=== PATIENT | male | born 1930 | race Caucasian/White ===

== ENCOUNTER 2016-09-25 07:40 | Day surgery (SDC) | payer MEDICARE, OTHER ==
--- NOTE | 2016-09-25 06:55 | PCM.HP ---
H&P History of Present Illness - General Date of Service: 09/25/16 Admit Problem/Dx: tubular adenoma of duodenum Source of Information: Patient - History of Present Illness Initial Comments - Free Text/Narative: The patient is a 86-year-old male known to the clinic. His PCP is Dr. Eva Downs. He was last evaluated in the clinic on 08/22/16. He denies any changes to his health history. He has been holding his Coumadin for 5 days. PT/INR drawn today. The patient underwent a diagnostic EGD with diagnostic colonoscopy on 2015 this was completed with Dr. Brenda Arizmendi for suspected upper GI bleed, chronic anticoagulation, anemia, melena. The EGD and colonoscopy revealed gastritis, pyloric stenosis, moderate diverticulosis, colon polyps, and colonic venous lakes. The patient did have an ascending colon polyp, sigmoid colon polyp and rectal polyp. Dilation was not required of the pyloric stenosis. The patient did have a duodenal polyp. This was biopsied. No obvious ulcers or evidence of recent bleeding were noted. The patient was instructed to continue his Protonix and Carafate. Pathology revealed tubular adenomatous duodenal polyp , colon polyps (tubular adenoma x 1). Dr. Arizmendi did recommend a short interval EGD to remove the entire duodenal polyp. The patient denies any constipation/ diarrhea/ hematochezia/ melena/blood on tissue paper/hemorrhoids. Has 1-2 soft, brown, formed, BMs daily. No abdominal pain. No recurrence of GI bleeding. He is on Coumadin therapy for atrial fibrillation. No history of reflux, heartburn, nausea, vomiting, or dysphagia. - Related Data Allergies/Adverse Reactions: Allergies Allergy/AdvReac Type Severity Reaction Status Date / Time No Known Allergies Allergy Verified 09/24/16 16:44 Home Medications: Home Meds Metoprolol Tartrate 25 mg PO BID 01/05/16 [History] Nabumetone [Relafen] 750 mg PO BID 01/05/16 [History] Pantoprazole Sodium [Protonix] 40 mg PO DAILY #30 tablet. 01/08/16 [Rx] Acetaminophen [Tylenol] 650 mg PO Q6H PRN 02/01/16 [History] Calcium Carbonate/Vitamin D3 [Calcium 600 + Vit D Softgel] 1 tab PO DAILY [History] Cyanocobalamin (Vitamin B-12) [Vitamin B-12] 1,000 mcg PO DAILY 02/01/16 [ History] Ubidecarenone [Co Q-10] 100 mg PO DAILY 02/01/16 [History] Warfarin Sodium [Jantoven] 3 mg PO DAILY 02/01/16 [History] Diltiazem HCl [Dilt-Xr] 180 mg PO DAILY 09/24/16 [History] Ferrous Sulfate 325 mg PO BIDMEALS 09/24/16 [History] Potassium Chloride [Potassium Chloride] 10 meq PO DAILY 09/24/16 [History] Simvastatin [Simvastatin] 10 mg PO DAILY 09/24/16 [History] Past Medical History HEENT History: Reports: Hard of Hearing, Impaired Vision, Other (See Below) Other HEENT History: hearing aid, dentures, glasses Cardiovascular History: Reports: Afib, High Cholesterol, Hypertension Other Cardiovascular History: Mitral and aortic heart valve diseases, aortic insufficiency, EF of 50-55% Respiratory History: Reports: COPD, Sleep Apnea Gastrointestinal History: Reports: Colon Polyp, Fecal Incontinence, Gastritis, GI Bleed, Other (See Below) Other Gastrointestinal History: dysphagia, GI bleed, adenoma of duodenum Genitourinary History: Reports: BPH, Other (See Below) Other Genitourinary History: nocturia REGULATORY AFFAIRS ANALYST History: Reports: None Musculoskeletal History: Reports: Arthritis, Osteoarthritis Other Musculoskeletal History: Chronic spine pain, degenerative joing disease Neurological History: Reports: Other (See Below) Other Neuro History: lightheadedness, dizziness Psychiatric History: Reports: Depression Endocrine/Metabolic History: Reports: None Hematologic History: Reports: None Immunologic History: Reports: None Oncologic (Cancer) History: Reports: None Dermatologic History: Reports: None - Past Surgical History HEENT Surgical History: Reports: Tonsillectomy Cardiovascular Surgical History: Reports: Other (See Below) Other Cardiovascular Surgeries/Procedures: cardiac cath GI Surgical History: Reports: Colonoscopy, EGD Male Surgical History: Reports: Vasectomy Musculoskeletal Surgical History: Reports: Carpal Tunnel, Hip Replacement, Knee Replacement, Other (See Below) Other Musculoskeletal Surgeries/Procedures:: Right ulnar nerve surgery, carpal tunnel release Social & Family History - Family History Family Medical History: Noncontributory - Tobacco Use Smoking Status *Q: Former Smoker Used Tobacco, but Quit: Yes Month Tobacco Last Used: Quit in 1962 Second Hand Smoke Exposure: No - Caffeine Use Caffeine Use: Reports: Coffee, Tea Caffeine Use Comment: one cup of coffee in the morning and a half gallon of iced tea a day - Recreational Drug Use Recreational Drug Use: No - Living Situation & Occupation Living situation: Reports: Occupation: Retired H&P Review of Systems - Review of Systems: Review Of Systems: See Below Free Text/Narrative: Denies any exertional chest pain. Has exertional shortness of breath. Did report at last cardiology visit, no change since that visit, no worse. History of any easy bleeding or bruising, is on coumadin for atrial fibrillation. No personal clotting or bleeding disorders. Mother had multiple mini strokes. No history of anesthetic complications. No history of familial anesthetic complications. Denies presence/history of chest pain, palpitations. Has lower extremity edema , PCP aware per patient. Reports this resolved after elevation or sleeping. He does occasionally wear compression stockings. NO: dyspnea at rest, orthopnea, claudication, wheezing. Has obstructive sleep apnea. NO: chronic cough, upper respiratory symptoms in the last two weeks. History of blood thinner use, on Coumadin for atrial fibrillation. History of anemia. The patient left knee and right hip joint replacement. No history of seizure or stroke. No hx of valve replacement/repair. No history of fever, chills, or night sweats. Prior pulmonology evaluation many years ago for his shortness of breath. Prior cardiology evaluation. EKG 2015: EKG Severity - ABNORMAL ECG - EKG Impression Atrial fibrillation Nonspecific intraventricular conduction delay Low voltage, extremity leads Echo 2016: Conclusion: 1. Normal LV size and systolic function without hypertrophy. Left ventricular ejection fraction is 50 to 55%. 2. Mildly enlarged right ventricle with normal systolic function 3. Severe biatrial dilatation. 4. Moderate mitral valve regurgitation. 5. Mild aortic sclerosis with mild to moderate aortic regurgitation. 6. Moderate tricuspid regurgitation. 7. Mildly elevated pulmonary artery systolic pressure, estimated at 44.4 mmHg. Saw Edna Anderson PA-C in April 2016. He has Chronic atrial fibrillation, anticoagulated with Coumadin, rate controlled with Toprol and diltiazem. He has Hypertension. Blood pressure controlled is controlled on diltiazem and metoprolol. He has Hyperlipidemia. His LDL was not at goal and Simvastatin was increased 10 mg daily. He has Nonrheumatic valvular heart disease. Repeat echocardiogram advised with his followup appointment in 6 months. EKG in ED 2016:Abnormal EKG, atrial fibrillation, PVCs, "decreased voltage particularly noted in limb leads, diffuse early repolarization pattern Q waves in lead 3. Q wave in lead aVF considered insignificant, as it is less than 25% of QRS complex. Cannot rule out old inferior wall KS for certain, no acute ischemic changes evident," per Dr. Mina's note. Cardiolite stress test in 2013 found no definite reversible ischemia. Cardiac Cath 2008: SUMMARY 1. Normal coronary arteries. 2. Normal right heart pressures. 3. One-plus aortic insufficiency. 4. Normal left ventricular systolic function, ejection fraction 55%-60%. All other systems reviewed and were negative except as per history of present illness. General: Reports: No Symptoms. Denies: Fever, Chills HEENT: Reports: No Symptoms Pulmonary: Reports: No Symptoms. Denies: Shortness of Breath Cardiovascular: Reports: No Symptoms. Denies: Chest Pain, Palpitations, Lightheadedness, Syncope, Blood Pressure Problem Gastrointestinal: Reports: No Symptoms. Denies: Abdominal Pain Genitourinary: Reports: No Symptoms Musculoskeletal: Reports: No Symptoms Skin: Reports: No Symptoms Psychiatric: Reports: No Symptoms Neurological: Reports: No Symptoms Hematologic/Lymphatic: Reports: No Symptoms Immunologic: Reports: No Symptoms Exam - Exam Exam: See Below - Vital Signs Weight: 106.458 kg - Exam General: Alert, Oriented HEENT: Conjunctiva Clear. No: Scleral Icterus Neck: Supple Lungs: Clear to Auscultation, Normal Respiratory Effort Cardiovascular: Regular Rate, Normal S1, Normal S2, Irregular Rhythm, Other ( occasional extra systole) Abdomen: Soft. No: Tenderness Back Exam: Normal Inspection Extremities: Normal Inspection, Normal Pulses, Edema (+1 BLE). No: Clubbing Skin: Warm, Dry, Intact Neuro Extensive - Mental Status: Alert, Oriented x3, Normal Mood/Affect, Normal Cognition, Memory Intact Psychiatric: Alert, Normal Affect, Normal Mood *Q Meaningful Use (ADM) - VTE *Q VTE Criteria *Q: - Stroke *Q Stroke Criteria *Q: - AMI *Q AMI Criteria *Q: - Problem List (1) Duodenal adenoma SNOMED Code(s): 726049884 ICD Code: D13.2 - BENIGN NEOPLASM OF DUODENUM Status: Acute Current Visit : Yes Problem List Initiated/Reviewed/Updated: Yes Orders Last 24hrs: Active Orders 24 hr Category Date Time Status Peripheral IV Care [RC] . DIRECTED Care 09/25/16 07:00 Active Verify Patient Consent Obtain [RC] ASDIRECTED Care 09/25/16 07:00 Active Lactated Ringers [Ringers, Lactated] 1,000 ml Med 09/25/16 07:00 Active IV ASDIRECTED Lidocaine 1%/Sod Bicarbonate [Buffered Lidocaine 1% in Med 09/25/16 07:00 Active NS 8.4%] 0.25 ml .XX ONETIME PRN Sodium Chloride 0.9% [Saline Flush] Med 09/25/16 07:00 Active 10 ml FLUSH ASDIRECTED PRN Medication Administration Instruction [OM.PC] Routine Oth 09/25/16 07:00 Ordered Peripheral IV Insertion Adult [OM.PC] Routine Oth 09/25/16 07:00 Ordered Medication Orders Lactated Ringer's (Ringers, Lactated) 1,000 mls @ 125 mls/hr IV ASDIRECTED MONIKA Stop: 09/25/16 23:00 Lidocaine/Sodium Bicarbonate (Buffered Lidocaine 1% In Ns 8.4%) 0.25 ml .XX ONETIME PRN PRN Reason: Prior to IV Start Stop: 09/25/16 18:00 Sodium Chloride (Saline Flush) 10 ml FLUSH ASDIRECTED PRN PRN Reason: Keep Vein Open Stop: 09/25/16 18:00 Assessment/Plan Comment:: 86yr male with hx of biopsied tubular adenoma of duodenum, need for therapeutic EGD Patient can perform 4 METS of physical activity without chest pain. Has exertional shortness of breath. PLAN: We discussed performing a therapeutic EGD. We discussed the risks and benefits, including pain, bleeding, damage to surrounding structures, small bowel perforation, need for additional procedures. This procedure will be done at [facility], due to atrial fibrillation, chronic anticoagulation, co-morbidities. I personally reviewed the patient's previous medical records and laboratory studies. Patient verbalized understanding and agreed with care plan. Patient was evaluated with Dr. Arizmendi, plan formulated by Dr. Ugo Shelton, BOTANICAL TECHNICAL OFFICER-C scribing for Dr. Brenda Arizmendi General Surgery Department [facility]
[~2016-09-25 07:40] MED LIST: Lactated Ringers 1,000 ML IV SCH; Lidocaine 1%/Sod Bicarbonate in NS 8.4% 1 ML Syringe PRN; Sodium Chloride 0.9% 10 ML Syringe FLUSH PRN
--- NOTE | 2016-09-25 08:28 | PCM.PREANE ---
Preanesthetic Assessment - Procedure Proposed Procedure: Therapeutic EGD - Anesthesia/Transfusion/Family Hx Anesthesia History: Prior Anesthesia Without Reaction Family History of Anesthesia Reaction: No Transfusion History: Prior Transfusion Without Reaction Intubation History: Unknown - Review of Systems General: No Symptoms Pulmonary: Cough (Everyday cough), Other (Current smokeless tobacco user, STACIE, brought CPAP) Cardiovascular: Lightheadedness, Other (HTN, Afib, non-rhumatic valvular heart disease, mitral and aortic insufficiency, nonspecific conduction delay, hypercholesteremia) Gastrointestinal: Difficulty swallowing (Dysphagia), Other (Past GI bleed with prior blood transfusion in fall 2015, gastritis, adenoma of duodenem) Neurological: Dizziness, Headache, Numbness, Paresthesia, Tingling, Other ( Degenerative joint disease, arthritis, spine pain) Other: Reports: Easy Bleeding (On coumadin), Easy Bruising, Depression - Physical Assessment NPO Status Date: 09/24/16 NPO Status Time: 23:30 Pulse: 73 O2 Sat by Pulse Oximetry: 96 Respiratory Rate: 16 Blood Pressure: 138/81 Temperature: 35.6 C Vital Signs: Last Vital Signs Temp 35.6 C 09/25/16 07:50 Pulse 73 09/25/16 07:50 Resp 16 09/25/16 07:50 BP 138/81 09/25/16 07:50 Pulse Ox 96 09/25/16 07:50 Height: 1.88 m Weight: 113.852 kg ASA Class: 3 Mental Status: Alert & Oriented x3 Airway Class: Mallampati = 1 Dentition: Reports: Dentures (Both upper and lower) Thyro-Mental Finger Breadths: 3 Mouth Opening Finger Breadths: 3 ROM/Head Extension: Limited/Partial Lungs: Clear to auscultation, Normal respiratory effort Cardiovascular: Irregular Rhythm, Murmurs - Allergies Allergies/Adverse Reactions: Allergies Allergy/AdvReac Type Severity Reaction Status Date / Time No Known Allergies Allergy Verified 09/24/16 16:44 - Blood Blood Available: No Product(s) Available: None - Acknowledgements Anesthesia Type Planned: MAC Pt an Appropriate Candidate for the Planned Anesthesia: Yes Alternatives and Risks of Anesthesia Discussed w Pt/Guardian: Yes Pt/Guardian Understands and Agrees with Anesthesia Plan: Yes PreAnesthesia Questionnaire HEENT History: Reports: Hard of Hearing, Impaired Vision, Other (See Below) Other HEENT History: hearing aid, dentures, glasses Cardiovascular History: Reports: Afib, High Cholesterol, Hypertension Other Cardiovascular History: Mitral and aortic heart valve diseases, aortic insufficiency, EF of 50-55% Respiratory History: Reports: COPD, Sleep Apnea Gastrointestinal History: Reports: Colon Polyp, Fecal Incontinence, Gastritis, GI Bleed, Other (See Below) Other Gastrointestinal History: dysphagia, GI bleed, adenoma of duodenum Genitourinary History: Reports: BPH, Other (See Below) Other Genitourinary History: nocturia SALES CONSULTANT History: Reports: None Musculoskeletal History: Reports: Arthritis, Osteoarthritis Other Musculoskeletal History: Chronic spine pain, degenerative joing disease Neurological History: Reports: Other (See Below) Other Neuro History: lightheadedness, dizziness Psychiatric History: Reports: Depression Endocrine/Metabolic History: Reports: None Hematologic History: Reports: None Immunologic History: Reports: None Oncologic (Cancer) History: Reports: None Dermatologic History: Reports: None - Past Surgical History HEENT Surgical History: Reports: Tonsillectomy Cardiovascular Surgical History: Reports: Other (See Below) Other Cardiovascular Surgeries/Procedures: cardiac cath GI Surgical History: Reports: Colonoscopy, EGD Male Surgical History: Reports: Vasectomy Musculoskeletal Surgical History: Reports: Carpal Tunnel, Hip Replacement, Knee Replacement, Other (See Below) Other Musculoskeletal Surgeries/Procedures:: Right ulnar nerve surgery, carpal tunnel release - SUBSTANCE USE Smoking Status *Q: Former Smoker Tobacco Use Within Last Twelve Months: Smokeless Tobacco (Current) Second Hand Smoke Exposure: No Days Per Week of Alcohol Use: 0 Number of Drinks Per Day: 0 Total Drinks Per Week: 0 Recreational Drug Use History: No - HOME MEDS Home Medications: Home Meds Metoprolol Tartrate 25 mg PO BID 01/05/16 [History] Nabumetone [Relafen] 750 mg PO BID 01/05/16 [History] Pantoprazole Sodium [Protonix] 40 mg PO DAILY #30 tablet.dr 01/08/16 [Rx] Acetaminophen [Tylenol] 650 mg PO Q6H PRN 02/01/16 [History] Calcium Carbonate/Vitamin D3 [Calcium 600 + Vit D Softgel] 1 tab PO DAILY [History] Cyanocobalamin (Vitamin B-12) [Vitamin B-12] 1,000 mcg PO DAILY 02/01/16 [ History] Ubidecarenone [Co Q-10] 100 mg PO DAILY 10/13/16 [History] Warfarin Sodium [Jantoven] 3 mg PO DAILY 02/01/16 [History] Diltiazem HCl [Dilt-Xr] 180 mg PO DAILY 09/24/16 [History] Ferrous Sulfate 325 mg PO BIDMEALS 09/24/16 [History] Potassium Chloride [Potassium Chloride] 10 meq PO DAILY 09/24/16 [History] Simvastatin [Simvastatin] 10 mg PO DAILY 09/24/16 [History] - CURRENT (IN HOUSE) MEDS Current Meds: Current Medications Lactated Ringer's (Ringers, Lactated) 1,000 mls @ 125 mls/hr IV ASDIRECTED MONIKA Stop: 09/25/16 23:00 Last Admin: 09/25/16 08:10 Dose: 125 mls/hr Lidocaine/Sodium Bicarbonate (Buffered Lidocaine 1% In Ns 8.4%) 0.25 ml .XX ONETIME PRN PRN Reason: Prior to IV Start Stop: 09/25/16 18:00 Sodium Chloride (Saline Flush) 10 ml FLUSH ASDIRECTED PRN PRN Reason: Keep Vein Open Stop: 09/25/16 18:00
[2016-09-25] MEDS ORDERED: Propofol 200 MG/20 ML SDV ONE ×2 (08:46→08:47)
[2016-09-25] MEDS ORDERED: Lidocaine 1% 4 ML ONE (08:50)
--- NOTE | 2016-09-25 08:54 | PCM.OPNOTE ---
- General Post-Op/Procedure Note Date of Surgery/Procedure: 09/25/16 Operative Procedure(s): Therapeutic EGD with cold forceps biopsy Pre Op Diagnosis: Tubular adenoma the duodenum Post-Op Diagnosis: Gastric ulcers, duodenal (D3) adenoma Anesthesia Technique: MAC Primary Surgeon: Brenda Arizmendi Anesthesia Provider: Allison Mauro Pathology: 1. Duodenal adenoma 2. Antral biopsies EBL in mLs: 1 Complications: None Condition: Good Free Text/Narrative:: FLUIDS: 200 mL crystalloid. INDICATION FOR PROCEDURE: The patient is a 86-year-old man who is referred to me by Dr. Eva Downs for evaluation of adenomatous polyp of the duodenum. EGD had been discussed with the patient and risks of the associated procedure. The patient found these risks acceptable and agreed to proceed. DESCRIPTION OF PROCEDURE: The patient was taken to the operating room and placed in the left lateral decubitus position. After induction of adequate sedation, a bite block was placed. A standard Olympus gastroscope was inserted into the oropharynx and guided down the esophagus without difficulty. The gastroesophageal junction was appreciated at 42 cm from the teeth. There was no evidence of stricture or esophageal ulcerations. The scope was advanced into the stomach, and there were antral ulcers (2) and gastritis with areas of punctate hemorrhage. The scope was passed into the proximal jejunum and the duodenum which showed a small residual polyp at D3 which was completely excised with cold forceps. There were no petechiae or ulcerations. The proximal jejunum was grossly normal in appearance. The scope was withdrawn into the antrum, and additional cold forceps biopsies were obtained. The remainder of the gastric body was examined, and there were no additional abnormalities. The scope was retroflexed, and there was evidence of hiatal hernia (3 cm). The scope was straightened and withdrawn to the GE junction. Additional cold forceps biopsies were obtained of the distal esophagus. The scope was withdrawn through the remainder of the esophagus and no further abnormalities were noted. The posterior oropharynx was grossly normal in appearance. The scope was then fully withdrawn. The patient was awakened from sedation and transferred to the recovery room in stable condition having tolerated the procedure well. POSTOPERATIVE PLAN: I discussed with the patient's family my intraoperative findings and postoperative recommendations. The patient will follow up in approximately 7-10 days to discuss their pathology and how their symptoms are progressing. The patient is to continue Protonix, restart H2 oleg and Carafate. I have asked the patient to follow a GERD\gastritis diet. The patient is to call with any worsening of symptoms or questions prior to appointment.
--- NOTE | 2016-09-25 09:29 | PCM48HPAN ---
Post Anesthesia Note - EVALUATION WITHIN 48HRS OF ANESTHETIC Vital Signs in Normal Range: Yes Patient Participated in Evaluation: Yes Respiratory Function Stable: Yes (will put on home CPAP mask if needed ) Airway Patent: Yes Cardiovascular Function Stable: Yes Hydration Status Stable: Yes Pain Control Satisfactory: Yes Nausea and Vomiting Control Satisfactory: Yes Mental Status Recovered: Yes
[2016-09-25 10:57] VITALS: BP 129/86
== END 2016-09-25 10:10 | disposition home or self-care (01) ==
LOC: JD.SDS 07:40
PROVIDERS: ATTEND Surgery
DX: D13.2 Benign neoplasm of duodenum (principal); K44.9 Diaphragmatic hernia without obstruction or gangrene; Z79.899 Other long term (current) drug therapy; I10 Essential (primary) hypertension; E78.00 Pure hypercholesterolemia, unspecified; J44.9 Chronic obstructive pulmonary disease, unspecified; G47.30 Sleep apnea, unspecified; N40.0 Benign prostatic hyperplasia without lower urinary tract symptoms; F32.9 Major depressive disorder, single episode, unspecified; Z79.01 Long term (current) use of anticoagulants; Z98.52 Vasectomy status; Z96.649 Presence of unspecified artificial hip joint; Z96.659 Presence of unspecified artificial knee joint; Z87.891 Personal history of nicotine dependence
CPT/HCPCS: 36415; 43239; 85610; 88305; J7120; J2704

== ENCOUNTER 2017-11-06 09:50 | Day surgery (SDC) | payer MEDICARE, OTHER ==
[~2017-11-06 09:50] MED LIST changes: +Lidocaine 1% 4 ML ONE; +Lidocaine 1%/Sod Bicarbonate in NS 8.4% 1 ML Syringe IDERM PRN; -Lidocaine 1%/Sod Bicarbonate in NS 8.4% 1 ML Syringe PRN; +Propofol 200 MG/20 ML SDV ONE; +fentaNYL 100 MCG/2 ML SDV ONE
--- NOTE | 2017-11-06 10:36 | PCM.PREANE ---
Preanesthetic Assessment - Anesthesia/Transfusion/Family Hx Anesthesia History: Prior Anesthesia Without Reaction Family History of Anesthesia Reaction: No Transfusion History: Prior Transfusion Without Reaction Intubation History: Unknown - Review of Systems General: No Symptoms Pulmonary: No Symptoms Cardiovascular: Dyspnea on Exertion Gastrointestinal: No Symptoms Neurological: No Symptoms Other: Reports: None - Physical Assessment NPO Status Date: 11/05/17 NPO Status Time: 00:00 Pulse: 86 O2 Sat by Pulse Oximetry: 93 Respiratory Rate: 20 Blood Pressure: 124/82 Temperature: 37.0 C Height: 1.88 m Weight: 113.67 kg ASA Class: 3 Mental Status: Alert & Oriented x3 Thyro-Mental Finger Breadths: 3 Mouth Opening Finger Breadths: 3 ROM/Head Extension: Full Lungs: Clear to Auscultation, Normal Respiratory Effort Cardiovascular: Irregular Rhythm - Imaging/EKG Impressions: FKG A-fib - Allergies Allergies/Adverse Reactions: Allergies Allergy/AdvReac Type Severity Reaction Status Date / Time No Known Allergies Allergy Verified 11/06/17 11:42 - Blood Blood Available: No Product(s) Available: None - Anesthesia Plan Pre-Op Medication Ordered: Beta Sidra Beta Sidra: Metoprolol Med Last Dose Date: 11/06/17 Med Last Dose Time: 08:30 - Acknowledgements Anesthesia Type Planned: MAC Pt an Appropriate Candidate for the Planned Anesthesia: Yes Alternatives and Risks of Anesthesia Discussed w Pt/Guardian: Yes Pt/Guardian Understands and Agrees with Anesthesia Plan: Yes PreAnesthesia Questionnaire HEENT History: Reports: Hard of Hearing, Impaired Vision, Other (See Below) Other HEENT History: hearing aid, dentures, glasses Cardiovascular History: Reports: Afib, High Cholesterol, Hypertension Other Cardiovascular History: Mitral and aortic heart valve diseases, aortic insufficiency, EF of 50-55% Respiratory History: Reports: COPD, Sleep Apnea, SOB Gastrointestinal History: Reports: Colon Polyp, Fecal Incontinence, Gastritis, GI Bleed, Other (See Below) Other Gastrointestinal History: dysphagia, GI bleed, adenoma of duodenum Genitourinary History: Reports: BPH, Other (See Below) Other Genitourinary History: nocturia [employer] History: Reports: None Musculoskeletal History: Reports: Arthritis, Osteoarthritis Other Musculoskeletal History: Chronic spine pain, degenerative joing disease Neurological History: Reports: Other (See Below) Other Neuro History: lightheadedness, dizziness Psychiatric History: Reports: Depression Endocrine/Metabolic History: Reports: None Hematologic History: Reports: None Immunologic History: Reports: None Oncologic (Cancer) History: Reports: None Dermatologic History: Reports: None - Past Surgical History Head Surgeries/Procedures: Reports: None HEENT Surgical History: Reports: Tonsillectomy Cardiovascular Surgical History: Reports: Other (See Below) Other Cardiovascular Surgeries/Procedures: cardiac cath Respiratory Surgical History: Reports: None GI Surgical History: Reports: Colonoscopy, EGD Male Surgical History: Reports: Vasectomy Endocrine Surgical History: Reports: None Neurological Surgical History: Reports: None Musculoskeletal Surgical History: Reports: Carpal Tunnel, Hip Replacement, Knee Replacement, Other (See Below) Other Musculoskeletal Surgeries/Procedures:: Right ulnar nerve surgery, carpal tunnel release Oncologic Surgical History: Reports: None Dermatological Surgical History: Reports: None - SUBSTANCE USE Smoking Status *Q: Current Every Day Smoker Tobacco Use Within Last Twelve Months: Smokeless Tobacco, Snuff/Dip Recreational Drug Use History: No - HOME MEDS Home Medications: Home Meds Metoprolol Tartrate 25 mg PO BID 01/05/16 [History] Nabumetone [Relafen] 750 mg PO BID 01/05/16 [History] Calcium Carbonate/Vitamin D3 [Calcium 600-Vit D3 500 Softgel] 1 tab PO DAILY [History] Cyanocobalamin (Vitamin B-12) [Vitamin B-12] 1,000 mcg PO DAILY 02/01/16 [ History] Warfarin Sodium [Jantoven] 3 mg PO DAILY 02/01/16 [History] Diltiazem HCl [Dilt-Xr] 180 mg PO DAILY 09/24/16 [History] Potassium Chloride 10 meq PO DAILY 09/24/16 [History] Simvastatin 10 mg PO DAILY 09/24/16 [History] Ranitidine HCl [Zantac 75] 75 mg PO BID #60 tablet 09/25/16 [Rx] - CURRENT (IN HOUSE) MEDS Current Meds: Current Medications Lactated Ringer's (Ringers, Lactated) 1,000 mls @ 125 mls/hr IV ASDIRECTED MONIKA Stop: 11/06/17 23:00 Lidocaine/Sodium Bicarbonate (Buffered Lidocaine 1% In Ns 8.4%) 0.25 ml IDERM ONETIME PRN PRN Reason: Prior to IV Start Stop: 11/06/17 18:00 Sodium Chloride (Saline Flush) 10 ml FLUSH ASDIRECTED PRN PRN Reason: Keep Vein Open Stop: 11/06/17 18:00 Discontinued Medications Fentanyl (Sublimaze) Confirm Administered Dose 100 mcg .ROUTE .STK-MED ONE Stop: 11/06/17 09:23 Lidocaine HCl (Xylocaine-Mpf 1%) Confirm Administered Dose 4 mls @ as directed .ROUTE .STK-MED ONE Stop: 11/06/17 09:27 Propofol (Diprivan 20 Ml) Confirm Administered Dose 200 mg .ROUTE .STK-MED ONE Stop: 11/06/17 09:27
--- NOTE | 2017-11-06 12:05 | PCM.OPNOTE ---
- General Post-Op/Procedure Note Date of Surgery/Procedure: 11/06/17 Operative Procedure(s): EGD with bx Pre Op Diagnosis: hx of gastic ulcer and hx of excsions of duodenal adenoma Post-Op Diagnosis: Same Anesthesia Technique: MAC Primary Surgeon: Clif Nice EBL in mLs: 0 Complications: None Condition: Good
--- NOTE | 2017-11-06 12:09 | PCM48HPAN ---
Post Anesthesia Note - EVALUATION WITHIN 48HRS OF ANESTHETIC Vital Signs in Normal Range: Yes Patient Participated in Evaluation: Yes Respiratory Function Stable: Yes Airway Patent: Yes Cardiovascular Function Stable: Yes Hydration Status Stable: Yes Pain Control Satisfactory: Yes Nausea and Vomiting Control Satisfactory: Yes Mental Status Recovered: Yes Pulse Rate: 55 SaO2: 92 Resp Rate: 14 Temperature: 36.6 C Blood Pressure: 92/69
--- NOTE | 2017-11-07 07:10 | OR ---
DATE OF OPERATION: 11/06/2017 SURGEON: Clif Nice MD PREOPERATIVE DIAGNOSIS: History of duodenal adenoma and gastric ulcer, here for surveillance upper GI endoscopy. POSTOPERATIVE DIAGNOSIS: History of duodenal adenoma and gastric ulcer, here for surveillance upper GI endoscopy. OPERATION PERFORMED: Esophagogastroduodenoscopy with biopsy. FINDINGS: Superficial ulceration in the antrum. Second portion of the duodenum and duodenal bulb were normal. Body, cardia, and fundus of the stomach unremarkable. 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 GE junction located at 42 cm with some granulation tissue by which it was biopsied. Rest of the esophagus was unremarkable. ANESTHESIA: Done under IV sedation. DESCRIPTION OF PROCEDURE: The patient was taken to the endoscopy room, placed in a supine position, connected to monitoring equipment, given IV sedation, placed in left lateral position. Bite block was inserted and video Olympus gastroscope placed in the posterior oropharynx under direct vision, threaded past the cricopharyngeus, down the esophagus into the stomach. Stomach was insufflated, and the scope passed through the pylorus to the second portion of the duodenum. There was some distortion of the antrum. Second portion of the duodenum and duodenal bulb were unremarkable. The antrum showed some inflammation and possible ulcer and this was biopsied. It was early if anything. Body, cardia, fundus, stomach, and J maneuver was performed, incompetent hiatus was noted. Did not see any pathology. GE junction was located at 42 cm and showed some granulation tissue and this was biopsied. Rest of the esophagus was viewed, scope was withdrawn, unremarkable. The patient tolerated the procedure, sent to recovery room in a stable condition, and will be started on anticoagulation and biopsies sent to pathology in a labeled container. ESTIMATED BLOOD LOSS: MMODAL /[id number]
[2017-11-12 08:00] VITALS: BP 124/82
== END 2017-11-06 14:00 | disposition home or self-care (01) ==
LOC: JD.SDS 09:50
PROVIDERS: ATTEND Surgery
DX: K29.60 Other gastritis without bleeding (principal); K44.9 Diaphragmatic hernia without obstruction or gangrene; G47.30 Sleep apnea, unspecified; I10 Essential (primary) hypertension; I48.2 Chronic atrial fibrillation; J44.9 Chronic obstructive pulmonary disease, unspecified; M19.90 Unspecified osteoarthritis, unspecified site; E78.00 Pure hypercholesterolemia, unspecified; F17.290 Nicotine dependence, other tobacco product, uncomplicated; Z79.01 Long term (current) use of anticoagulants; Z79.899 Other long term (current) drug therapy; Z87.19 Personal history of other diseases of the digestive system
CPT/HCPCS: 36415; 43239; 85610; J2704; J3010; J7120; 00731; J2001

== ENCOUNTER 2019-01-24 17:07 | Inpatient (IN) | payer MEDICARE, OTHER ==
[2019-01-24] MEDS ORDERED: Acetaminophen 325 MG Tab PO ONE (17:54)
[2019-01-24] MEDS ORDERED: Ondansetron 4 MG/2 ML SDV IVPUSH ONE (17:55)
[2019-01-24] MEDS ORDERED: Dextrose 5%-0.9% NaCl 1,000 ML IV SCH (18:00)
[2019-01-24] MEDS ORDERED: Levofloxacin/Dextrose 5%-Water 750 MG in Premix Bag 1 BAG IV ONE (18:01)
--- NOTE | 2019-01-24 18:02 | EDM.PDOC ---
ED HPI GENERAL MEDICAL PROBLEM - General Chief Complaint: General Stated Complaint: FLU SX Time Seen by Provider: 01/24/19 17:29 Source of Information: Reports: Patient, Family (son) History Limitations: Reports: No Limitations - History of Present Illness INITIAL COMMENTS - FREE TEXT/NARRATIVE: 88-year-old male presents to the ED in the Imminent of his son. He lives alone and does very well. He became ill about 48 hours ago with fever and some chills and just feeling weak. He does have a minimal cough. Denies any diarrhea. He feels he does not empty his bladder completely at times during the day. Known to have BPH. He presents quite hypoxic. 88% on room air. Right oxygen at 4 L/m to maintain O2 sats 94%. He doesn't use oxygen at home. He is indeed very febrile. Clinically he is 102. He hasn't eaten hardly at all today. Feels weak and dizzy with standing. Onset: Sudden Onset Date: 01/22/19 (Hasn't felt well for the last 48 hours.) Duration: Day(s):, Getting Worse (2 days) Location: Reports: Generalized (Fever chills generalized weakness and shortness of breath.) Quality: Reports: Other (Lightheaded and dizzy. Mildly nauseated. No appetite.) Severity: Moderate Improves with: Reports: None Worsens with: Reports: None Context: Reports: Other (Spontaneous occurrence.). Denies: Activity, Exercise, Lifting, Sick Contact, Trauma Associated Symptoms: Reports: Cough, cough w sputum, Loss of Appetite, Malaise, Shortness of Breath, Weakness, Other (Generalized weakness and dizziness with standing). Denies: Confusion, Chest Pain, Diaphoresis (Bring a small quantity is of sputum.), Fever/Chills, Headaches, Nausea/Vomiting, Rash, Seizure, Syncope Treatments REFERENCE LIBRARY ASSISTANT: Reports: Other (see below) (None.) - Related Data Allergies Allergy/AdvReac Type Severity Reaction Status Date / Time No Known Allergies Allergy Verified 11/06/17 11:42 Home Meds: Home Meds Metoprolol Tartrate 25 mg PO BID 01/05/16 [History] Cyanocobalamin (Vitamin B-12) [Vitamin B-12] 1,000 mcg PO DAILY 02/01/16 [ History] Warfarin Sodium [Jantoven] 3 mg PO DAILY 02/01/16 [History] Diltiazem HCl [Dilt-Xr] 180 mg PO DAILY 09/24/16 [History] Simvastatin 10 mg PO DAILY 09/24/16 [History] Furosemide [Lasix] 20 mg PO DAILY 01/24/19 [History] Omeprazole Magnesium [Prilosec] 20 mg PO BEDTIME 01/24/19 [History] Potassium Chloride 10 meq PO DAILY 01/25/19 [History] Past Medical History HEENT History: Reports: Hard of Hearing, Impaired Vision, Other (See Below) Other HEENT History: hearing aid, dentures, glasses Cardiovascular History: Reports: Afib (Currently on Coumadin diltiazem and metoprolol for rate control.), High Cholesterol, Hypertension Other Cardiovascular History: Mitral and aortic heart valve diseases, aortic insufficiency, EF of 50-55% Respiratory History: Reports: COPD, Sleep Apnea, SOB Gastrointestinal History: Reports: Colon Polyp, Fecal Incontinence, Gastritis, GERD, GI Bleed, Other (See Below) Other Gastrointestinal History: dysphagia, GI bleed, adenoma of duodenum Genitourinary History: Reports: BPH, Other (See Below) Other Genitourinary History: nocturia INDUSTRIAL CUSTODIAN History: Reports: None Musculoskeletal History: Reports: Arthritis, Osteoarthritis Other Musculoskeletal History: Chronic spine pain, degenerative joing disease Neurological History: Reports: Other (See Below) Other Neuro History: lightheadedness, dizziness Psychiatric History: Reports: Depression Endocrine/Metabolic History: Reports: None Hematologic History: Reports: None Immunologic History: Reports: None Oncologic (Cancer) History: Reports: None Dermatologic History: Reports: None - Past Surgical History Head Surgeries/Procedures: Reports: None HEENT Surgical History: Reports: Tonsillectomy Cardiovascular Surgical History: Reports: Other (See Below) Other Cardiovascular Surgeries/Procedures: cardiac cath Respiratory Surgical History: Reports: None GI Surgical History: Reports: Colonoscopy, EGD Male Surgical History: Reports: Vasectomy Endocrine Surgical History: Reports: None Neurological Surgical History: Reports: None Musculoskeletal Surgical History: Reports: Carpal Tunnel, Hip Replacement, Knee Replacement, Other (See Below) Other Musculoskeletal Surgeries/Procedures:: Right ulnar nerve surgery, carpal tunnel release Oncologic Surgical History: Reports: None Dermatological Surgical History: Reports: None Social & Family History - Family History Family Medical History: Noncontributory - Tobacco Use Smoking Status *Q: Current Every Day Smoker Years of Tobacco use: 70 Packs/Tins Daily: 2 - Caffeine Use Caffeine Use: Reports: Coffee, Soda, Tea Caffeine Use Comment: one cup of coffee in the morning and a half gallon of iced tea a day - Recreational Drug Use Recreational Drug Use: No - Living Situation & Occupation Living situation: Reports: , Alone Occupation: Retired ED ROS GENERAL - Review of Systems Review Of Systems: See Below Constitutional: Reports: Fever, Chills, Malaise, Weakness, Fatigue, Decreased Appetite (Has a need to hardly at all today.) HEENT: Reports: Glasses Respiratory: Reports: Shortness of Breath (Glasses sometimes for reading), Cough , Sputum. Denies: Wheezing, Pleuritic Chest Pain, Hemoptysis Cardiovascular: Reports: Blood Pressure Problem, Dyspnea on Exertion, Edema, Palpitations (Hours has some swelling in his lower extremities.). Denies: Chest Pain, Claudication (Medication for Blood Pressure and Heart Rate Control Because He Is in Chronic Atrial Fib.), Lightheadedness, Orthopnea Endocrine: Reports: Fatigue ( He is in chronic atrial fib and sometimes is aware of palpitations.) GI/Abdominal: Reports: Constipation, Decreased Appetite : Reports: Frequency, Incontinence (Him dribbling sometimes. No incomplete emptying particular during the daytime.), Other (Nocturia 2 or 3 times per night.). Denies: Dysuria Musculoskeletal: Reports: Back Pain, Joint Pain (Knees low back and neck shoulders at times.) Skin: Reports: Bruising Neurological: Reports: No Symptoms (Bruises easily Aziz on Coumadin for his atrial fib.) Psychiatric: Reports: No Symptoms Hematologic/Lymphatic: Reports: No Symptoms Immunologic: Reports: No Symptoms ED EXAM, GENERAL - Physical Exam Exam: See Below Exam Limited By: No Limitations General Appearance: Alert, WD/WN, Mild Distress, Other (He is febrile and not feeling real well but answers all questions appropriately. Vital signs show temperature 38.2 pulse 84 and sinus respiratory distress I thought it was higher than this. BP 1 5668 sats were 86% on room air. 94% on 4 L by nasal cannula.) Eye Exam: Bilateral Eye: Normal Inspection Ears: Normal TMs, Hearing Loss, Other (He wears a hearing aid in both ears.) Throat/Mouth: Normal Oropharynx (Tonsils are absent), Other (Tongue is mildly dry and coated.) Head: Atraumatic, Normocephalic. No: Facial Swelling, Facial Tenderness Neck: Normal Inspection, Limited Range of Motion, Tender Lateral (Crepitus with movement of his neck tender laterally both sides suggesting osteoarthritic change.). No: Lymphadenopathy (L), Lymphadenopathy (R) Respiratory/Chest: No Accessory Muscle Use, Chest Non-Tender, Respiratory Distress (Tachypneic 21-22/m on my assessment.), Decreased Breath Sounds ( Breast sounds are diminished to the lower 30% of lung chaudhary bilaterally.), Rales (9 crackles or rales at both bases. Questionable pulmonary fibrosis.). No : Lungs Clear, Normal Breath Sounds, Rhonchi, Wheezing Cardiovascular: Systolic Murmur (There is an early diastolic murmur as well.), Irregularly Irregular (Atrial fibrillation with rate 80-145 minute.). No: Normal Peripheral Pulses Peripheral Pulses: 1+: Posterior Tibial (L), Posterior Tibial (R), Dorsalis Pedis (L), Dorsalis Pedis (R), 2+: Carotid (L), Carotid (R) GI/Abdominal: Normal Bowel Sounds, Soft, Non-Tender, No Organomegaly, No Abnormal Bruit, No Mass, Pelvis Stable Back Exam: Decreased Range of Motion, Other (Very mild kyphosis thoracic spine.) . No: CVA Tenderness (L) (He has stiffness and soreness in his low back with sitting.), CVA Tenderness (R) Extremities: Pedal Edema (2+ pitting edema to mid tib-fib bilaterally.), Other ( Evidence of osteophytic changes in both knees and both hips with very limited internal or external rotation.) Neurological: Alert, Oriented, CN II-XII Intact, Normal Cognition, No Motor/ Sensory Deficits Psychiatric: Normal Affect, Normal Mood Skin Exam: Warm, Dry, Intact, Normal Color, No Rash EKG INTERPRETATION EKG Date: 01/24/19 Time: 18:10 Rhythm: A-Fib (With rate of 88-1 40/m) Rate (Beats/Min): 97 [place]: Normal P-Wave: Variable QRS: Other (Nonspecific intraventricular conduction delay pattern. Initial poor R-wave progression. Decreased voltage throughout the limb leads.) ST-T: Other (Diffuse repolarization abnormality particular noted V4 to be 6.) QT: Normal EKG Interpretation Comments: Abnormal ECG Course - Vital Signs Last Recorded V/S: Last Vital Signs Temp 36.7 C 01/26/19 04:34 Pulse 87 01/26/19 04:34 Resp 18 01/26/19 04:34 BP 114/62 01/26/19 04:34 Pulse Ox 92 L 01/26/19 05:34 - Orders/Labs/Meds Orders: Medication Orders Acetaminophen (Tylenol) 650 mg PO Q4H PRN PRN Reason: Pain (Mild 1-3)/fever Last Admin: 01/25/19 20:52 Dose: 650 mg Admin: 01/25/19 02:36 Dose: 650 mg Cyanocobalamin (Vitamin B12) 1,000 mcg PO DAILY [facility] Last Admin: 01/25/19 10:17 Dose: 1,000 mcg Diltiazem HCl (Cardizem Cd) 180 mg PO DAILY [facility] Last Admin: 01/25/19 10:17 Dose: 180 mg Furosemide (Lasix) 20 mg PO DAILY [facility] Last Admin: 01/25/19 10:17 Dose: 20 mg Lactated Ringer's (Ringers, Lactated) 1,000 mls @ 125 mls/hr IV ASDIRECTED [facility] Last Admin: 01/26/19 01:04 Dose: 125 mls/hr Infusion: 01/26/19 00:47 Dose: 125 mls/hr Admin: 01/25/19 16:47 Dose: 125 mls/hr Infusion: 01/25/19 16:45 Dose: 125 mls/hr Admin: 01/25/19 08:45 Dose: 125 mls/hr Infusion: 01/25/19 08:34 Dose: 125 mls/hr Admin: 01/25/19 00:34 Dose: 125 mls/hr Ceftriaxone Sodium 1 gm/ (Sodium Chloride) 100 mls @ 200 mls/hr IV BEDTIME [facility] Stop: 01/28/19 21:29 Last Admin: 01/25/19 20:52 Dose: 200 mls/hr Metoprolol Tartrate (Lopressor) 25 mg PO Q12H [facility] Last Admin: 01/25/19 23:42 Dose: 25 mg Admin: 01/25/19 11:22 Dose: 25 mg Ondansetron HCl (Zofran) 4 mg IV Q4H PRN PRN Reason: Nausea/Vomiting Ondansetron HCl (Zofran Odt) 4 mg PO Q4H PRN PRN Reason: nausea, able to take PO Pantoprazole Sodium (Protonix) 40 mg PO BEDTIME [facility] Last Admin: 01/25/19 20:52 Dose: 40 mg Senna/Docusate Sodium (Senna Plus) 1 tab PO BID PRN PRN Reason: Constipation Simvastatin (Zocor) 10 mg PO DAILY [facility] Last Admin: 01/25/19 10:17 Dose: 10 mg Warfarin Sodium (Pharmacy To Dose - Warfarin) 1 dose .XX ASDIRECTED PRN PRN Reason: RX TO DOSE WARFARIN Labs: Laboratory Tests 01/24/19 01/24/19 01/24/19 Range/Units 14:33 18:40 18:40 WBC 17.00 H (4.23-9.07) K/mm3 RBC 4.34 L (4.63-6.08) M/mm3 Hgb 14.3 D (13.7-17.5) gm/dl Hct 40.9 (40.1-51.0) % MCV 94.2 H D (79.0-92.2) fl MCH 32.9 H (25.7-32.2) pg MCHC 35.0 (32.2-35.5) g/dl RDW Std Deviation 44.1 H (35.1-43.9) fL Plt Count 138 L (163-337) K/mm3 MPV 10.1 (9.4-12.3) fl Neutrophils % (Manual) 91 H (40-60) % Band Neutrophils % 0 (0-10) % Lymphocytes % (Manual) 9 L (20-40) % Atypical Lymphs % 0 % Monocytes % (Manual) 0 L (2-10) % Eosinophils % (Manual) 0 L (0.8-7.0) % Basophils % (Manual) 0 L (0.2-1.2) Platelet Estimate Decreased RBC Morph Comment Normal ESR (0-15) mm/hr PT (9.7-12.0) SECONDS INR Puncture Site ABG pH (7.35-7.45) ABG pCO2 (35.0-45.0) mmHg ABG pO2 (80.0-100.0) mmHg ABG HCO3 (22.0-26.0) meq/L ABG O2 Saturation (96.0-97.0) % ABG Base Excess (-2-2.0) Coryb Test A-a Gradient mmHg O2 Delivery Device Oxygen Flow Rate FiO2 (21.00-100.00) % Sodium (136-145) mEq/L Potassium (3.5-5.1) mEq/L Chloride (98-107) mEq/L Carbon Dioxide (21-32) mEq/L Anion Gap (5-15) BUN (7-18) mg/dL Creatinine (0.7-1.3) mg/dL Est Cr Clr Drug Dosing mL/min Estimated GFR (MDRD) (>60) mL/min BUN/Creatinine Ratio (14-18) Glucose (83-115) mg/dL Lactic Acid (0.4-2.0) mmol/L Calcium (8.5-10.1) mg/dL Magnesium (1.8-2.4) mg/dl Total Bilirubin (0.2-1.0) mg/dL AST (15-37) U/L ALT (16-63) U/L Alkaline Phosphatase (46-116) U/L Troponin I < 0.017 (0.00-0.056) ng/mL C-Reactive Protein (<1.0) mg/dL NT-Pro-B Natriuret Pep (0-450) pg/mL Total Protein (6.4-8.2) g/dl Albumin (3.4-5.0) g/dl Globulin gm/dL Albumin/Globulin Ratio (1-2) PSA Screen (0.0-4.0) ng/mL Urine Color Yellow (Yellow) Urine Appearance Cloudy H (Clear) Urine pH 5.5 (5.0-8.0) Ur Specific [place] > or = 1.030 (1.005-1.030) Urine Protein 3+ H (Negative) Urine Glucose (UA) Negative (Negative) Urine Ketones Trace H (Negative) Urine Occult Blood 3+ H (Negative) Urine Nitrite Positive H (Negative) Urine Bilirubin 1+ H (Negative) Urine Urobilinogen 1.0 (0.2-1.0) Ur Leukocyte Esterase 3+ H (Negative) Urine RBC 20-30 H (0-5) /hpf Urine WBC 75-100 H (0-5) /hpf Urine WBC Clumps Moderate (NOT SEEN) /hpf Ur Squamous Epith Cells 0-5 (0-5) /hpf Amorphous Sediment Moderate H (NOT SEEN) /hpf Urine Bacteria Many H (FEW) /hpf Fine Granular Casts 0-5 (0-5) /lpf Urine Mucus Rare (FEW) /hpf 01/24/19 01/24/19 01/24/19 Range/Units 18:40 18:40 18:40 WBC (4.23-9.07) K/mm3 RBC (4.63-6.08) M/mm3 Hgb (13.7-17.5) gm/dl Hct (40.1-51.0) % MCV (79.0-92.2) fl MCH (25.7-32.2) pg MCHC (32.2-35.5) g/dl RDW Std Deviation (35.1-43.9) fL Plt Count (163-337) K/mm3 MPV (9.4-12.3) fl Neutrophils % (Manual) (40-60) % Band Neutrophils % (0-10) % Lymphocytes % (Manual) (20-40) % Atypical Lymphs % % Monocytes % (Manual) (2-10) % Eosinophils % (Manual) (0.8-7.0) % Basophils % (Manual) (0.2-1.2) Platelet Estimate RBC Morph Comment ESR (0-15) mm/hr PT 22.2 H D (9.7-12.0) SECONDS INR 2.13 Puncture Site ABG pH (7.35-7.45) ABG pCO2 (35.0-45.0) mmHg ABG pO2 (80.0-100.0) mmHg ABG HCO3 (22.0-26.0) meq/L ABG O2 Saturation (96.0-97.0) % ABG Base Excess (-2-2.0) Corby Test A-a Gradient mmHg O2 Delivery Device Oxygen Flow Rate FiO2 (21.00-100.00) % Sodium 132 L D (136-145) mEq/L Potassium 3.8 (3.5-5.1) mEq/L Chloride 100 (98-107) mEq/L Carbon Dioxide 25 (21-32) mEq/L Anion Gap 10.8 (5-15) BUN 18 (7-18) mg/dL Creatinine 1.4 H (0.7-1.3) mg/dL Est Cr Clr Drug Dosing 44.04 mL/min Estimated GFR (MDRD) 48 (>60) mL/min BUN/Creatinine Ratio 12.9 L (14-18) Glucose 132 H (83-115) mg/dL Lactic Acid 1.9 (0.4-2.0) mmol/L Calcium 9.0 (8.5-10.1) mg/dL Magnesium 1.4 L (1.8-2.4) mg/dl Total Bilirubin 1.3 H (0.2-1.0) mg/dL AST 21 (15-37) U/L ALT 18 (16-63) U/L Alkaline Phosphatase 71 (46-116) U/L Troponin I (0.00-0.056) ng/mL C-Reactive Protein 20.7 H* (<1.0) mg/dL NT-Pro-B Natriuret Pep (0-450) pg/mL Total Protein 6.7 (6.4-8.2) g/dl Albumin 3.1 L (3.4-5.0) g/dl Globulin 3.6 gm/dL Albumin/Globulin Ratio 0.9 L (1-2) PSA Screen (0.0-4.0) ng/mL Urine Color (Yellow) Urine Appearance (Clear) Urine pH (5.0-8.0) Ur Specific [place] (1.005-1.030) Urine Protein (Negative) Urine Glucose (UA) (Negative) Urine Ketones (Negative) Urine Occult Blood (Negative) Urine Nitrite (Negative) Urine Bilirubin (Negative) Urine Urobilinogen (0.2-1.0) Ur Leukocyte Esterase (Negative) Urine RBC (0-5) /hpf Urine WBC (0-5) /hpf Urine WBC Clumps (NOT SEEN) /hpf Ur Squamous Epith Cells (0-5) /hpf Amorphous Sediment (NOT SEEN) /hpf Urine Bacteria (FEW) /hpf Fine Granular Casts (0-5) /lpf Urine Mucus (FEW) /hpf 01/24/19 01/24/19 01/24/19 Range/Units 18:44 19:33 19:33 WBC (4.23-9.07) K/mm3 RBC (4.63-6.08) M/mm3 Hgb (13.7-17.5) gm/dl Hct (40.1-51.0) % MCV (79.0-92.2) fl MCH (25.7-32.2) pg MCHC (32.2-35.5) g/dl RDW Std Deviation (35.1-43.9) fL Plt Count (163-337) K/mm3 MPV (9.4-12.3) fl Neutrophils % (Manual) (40-60) % Band Neutrophils % (0-10) % Lymphocytes % (Manual) (20-40) % Atypical Lymphs % % Monocytes % (Manual) (2-10) % Eosinophils % (Manual) (0.8-7.0) % Basophils % (Manual) (0.2-1.2) Platelet Estimate RBC Morph Comment ESR 30 H (0-15) mm/hr PT (9.7-12.0) SECONDS INR Puncture Site Rt radial ABG pH 7.47 H (7.35-7.45) ABG pCO2 31.5 L (35.0-45.0) mmHg ABG pO2 81.0 (80.0-100.0) mmHg ABG HCO3 22.4 (22.0-26.0) meq/L ABG O2 Saturation 97.2 H (96.0-97.0) % ABG Base Excess -0.2 (-2-2.0) Corby Test Positive A-a Gradient 137 mmHg O2 Delivery Device Nasal cannula Oxygen Flow Rate 4.0 FiO2 36.00 (21.00-100.00) % Sodium (136-145) mEq/L Potassium (3.5-5.1) mEq/L Chloride (98-107) mEq/L Carbon Dioxide (21-32) mEq/L Anion Gap (5-15) BUN (7-18) mg/dL Creatinine (0.7-1.3) mg/dL Est Cr Clr Drug Dosing mL/min Estimated GFR (MDRD) (>60) mL/min BUN/Creatinine Ratio (14-18) Glucose (83-115) mg/dL Lactic Acid (0.4-2.0) mmol/L Calcium (8.5-10.1) mg/dL Magnesium (1.8-2.4) mg/dl Total Bilirubin (0.2-1.0) mg/dL AST (15-37) U/L ALT (16-63) U/L Alkaline Phosphatase (46-116) U/L Troponin I (0.00-0.056) ng/mL C-Reactive Protein (<1.0) mg/dL NT-Pro-B Natriuret Pep 2979 H (0-450) pg/mL Total Protein (6.4-8.2) g/dl Albumin (3.4-5.0) g/dl Globulin gm/dL Albumin/Globulin Ratio (1-2) PSA Screen (0.0-4.0) ng/mL Urine Color (Yellow) Urine Appearance (Clear) Urine pH (5.0-8.0) Ur Specific [place] (1.005-1.030) Urine Protein (Negative) Urine Glucose (UA) (Negative) Urine Ketones (Negative) Urine Occult Blood (Negative) Urine Nitrite (Negative) Urine Bilirubin (Negative) Urine Urobilinogen (0.2-1.0) Ur Leukocyte Esterase (Negative) Urine RBC (0-5) /hpf Urine WBC (0-5) /hpf Urine WBC Clumps (NOT SEEN) /hpf Ur Squamous Epith Cells (0-5) /hpf Amorphous Sediment (NOT SEEN) /hpf Urine Bacteria (FEW) /hpf Fine Granular Casts (0-5) /lpf Urine Mucus (FEW) /hpf 01/24/19 Range/Units 19:33 WBC (4.23-9.07) K/mm3 RBC (4.63-6.08) M/mm3 Hgb (13.7-17.5) gm/dl Hct (40.1-51.0) % MCV (79.0-92.2) fl MCH (25.7-32.2) pg MCHC (32.2-35.5) g/dl RDW Std Deviation (35.1-43.9) fL Plt Count (163-337) K/mm3 MPV (9.4-12.3) fl Neutrophils % (Manual) (40-60) % Band Neutrophils % (0-10) % Lymphocytes % (Manual) (20-40) % Atypical Lymphs % % Monocytes % (Manual) (2-10) % Eosinophils % (Manual) (0.8-7.0) % Basophils % (Manual) (0.2-1.2) Platelet Estimate RBC Morph Comment ESR (0-15) mm/hr PT (9.7-12.0) SECONDS INR Puncture Site ABG pH (7.35-7.45) ABG pCO2 (35.0-45.0) mmHg ABG pO2 (80.0-100.0) mmHg ABG HCO3 (22.0-26.0) meq/L ABG O2 Saturation (96.0-97.0) % ABG Base Excess (-2-2.0) Corby Test A-a Gradient mmHg O2 Delivery Device Oxygen Flow Rate FiO2 (21.00-100.00) % Sodium (136-145) mEq/L Potassium (3.5-5.1) mEq/L Chloride (98-107) mEq/L Carbon Dioxide (21-32) mEq/L Anion Gap (5-15) BUN (7-18) mg/dL Creatinine (0.7-1.3) mg/dL Est Cr Clr Drug Dosing mL/min Estimated GFR (MDRD) (>60) mL/min BUN/Creatinine Ratio (14-18) Glucose (83-115) mg/dL Lactic Acid (0.4-2.0) mmol/L Calcium (8.5-10.1) mg/dL Magnesium (1.8-2.4) mg/dl Total Bilirubin (0.2-1.0) mg/dL AST (15-37) U/L ALT (16-63) U/L Alkaline Phosphatase (46-116) U/L Troponin I (0.00-0.056) ng/mL C-Reactive Protein (<1.0) mg/dL NT-Pro-B Natriuret Pep (0-450) pg/mL Total Protein (6.4-8.2) g/dl Albumin (3.4-5.0) g/dl Globulin gm/dL Albumin/Globulin Ratio (1-2) PSA Screen 54.7 H (0.0-4.0) ng/mL Urine Color (Yellow) Urine Appearance (Clear) Urine pH (5.0-8.0) Ur Specific [place] (1.005-1.030) Urine Protein (Negative) Urine Glucose (UA) (Negative) Urine Ketones (Negative) Urine Occult Blood (Negative) Urine Nitrite (Negative) Urine Bilirubin (Negative) Urine Urobilinogen (0.2-1.0) Ur Leukocyte Esterase (Negative) Urine RBC (0-5) /hpf Urine WBC (0-5) /hpf Urine WBC Clumps (NOT SEEN) /hpf Ur Squamous Epith Cells (0-5) /hpf Amorphous Sediment (NOT SEEN) /hpf Urine Bacteria (FEW) /hpf Fine Granular Casts (0-5) /lpf Urine Mucus (FEW) /hpf Meds: Medications Generic Name Dose Route Start Last Admin Trade Name Freq PRN Reason Stop Dose Admin Acetaminophen 650 mg 01/24/19 22:14 01/25/19 20:52 Tylenol PO 650 mg Q4H PRN Administration Pain (Mild 1-3)/fever Cyanocobalamin 1,000 mcg 01/25/19 09:00 01/25/19 10:17 Vitamin B12 PO 1,000 mcg DAILY MONIKA Administration Diltiazem HCl 180 mg 01/25/19 09:00 01/25/19 10:17 Cardizem Cd PO 180 mg DAILY MONIKA Administration Furosemide 20 mg 01/25/19 09:00 01/25/19 10:17 Lasix PO 20 mg DAILY MONIKA Administration Lactated Ringer's 1,000 mls @ 125 mls/hr 01/24/19 22:15 01/26/19 01:04 Ringers, Lactated IV 125 mls/hr ASDIRECTED MONIKA Administration Ceftriaxone Sodium 1 gm/ 100 mls @ 200 mls/hr 01/25/19 21:00 01/25/19 20:52 Sodium Chloride IV 01/28/19 21:29 200 mls/hr BEDTIME MONIKA Administration Metoprolol Tartrate 25 mg 01/25/19 11:00 01/25/19 23:42 Lopressor PO 25 mg Q12H MONIKA Administration Ondansetron HCl 4 mg 01/24/19 22:14 Zofran IV Q4H PRN Nausea/Vomiting Ondansetron HCl 4 mg 01/24/19 22:14 Zofran Odt PO Q4H PRN nausea, able to take PO Pantoprazole Sodium 40 mg 01/25/19 21:00 01/25/19 20:52 Protonix PO 40 mg BEDTIME MONIKA Administration Senna/Docusate Sodium 1 tab 01/24/19 22:14 Senna Plus PO BID PRN Constipation Simvastatin 10 mg 01/25/19 09:00 01/25/19 10:17 Zocor PO 10 mg DAILY MONIKA Administration Warfarin Sodium 1 dose 01/24/19 22:30 Pharmacy To Dose - Warfarin .XX ASDIRECTED PRN RX TO DOSE WARFARIN Discontinued Medications Generic Name Dose Route Start Last Admin Trade Name Wallaceq PRN Reason Stop Dose Admin Acetaminophen 650 mg 01/24/19 17:54 01/24/19 19:06 Tylenol PO 01/24/19 17:55 650 mg ONETIME ONE Administration Calcium Carbonate 1 tab 01/25/19 09:00 01/25/19 18:13 Calcium Carbonate/Vitamin D 600 Mg-200 Unit PO Not Given DAILY MONIKA Furosemide 40 mg 01/24/19 20:58 01/24/19 21:16 Lasix IVPUSH 01/24/19 20:59 40 mg NOW ONE Administration Dextrose/Sodium Chloride 1,000 mls @ 150 mls/hr 01/24/19 18:00 01/24/19 19:09 Dextrose 5%-Normal Saline IV 150 mls/hr ASDIRECTED MONIKA Administration Levofloxacin/Dextrose 750 mg/ 150 mls @ 100 mls/hr 01/24/19 18:01 01/24/19 19 :34 Premix IV 01/24/19 19:30 100 mls/hr ONETIME ONE Administration Ceftriaxone Sodium 1 gm/ 100 mls @ 200 mls/hr 01/24/19 22:14 01/24/19 23:18 Sodium Chloride IV 01/24/19 22:43 200 mls/hr Q24H STA Administration Magnesium Sulfate 4 gm/ Premix 50 mls @ 12.5 mls/hr 01/25/19 08:49 01/25/19 09:05 IV 01/25/19 12:48 12.5 mls/hr ONETIME ONE Administration Metoprolol Tartrate 50 mg 01/24/19 22:15 01/25/19 18:13 Lopressor PO Not Given BID MONIKA Ondansetron HCl 4 mg 01/24/19 17:55 01/24/19 19:03 Zofran IVPUSH 01/24/19 17:56 4 mg ONETIME ONE Administration Warfarin Sodium 3 mg 01/25/19 09:00 Coumadin PO DAILY [facility] Warfarin Sodium 3 mg 01/24/19 23:45 01/25/19 00:36 Coumadin PO 01/24/19 23:46 3 mg ONETIME ONE Administration Warfarin Sodium 3 mg 01/25/19 18:00 01/25/19 18:12 Coumadin PO 01/25/19 18:01 3 mg QPM MONIKA Administration - Radiology Interpretation Free Text/Narrative:: 88-year-old male presents to the ED with acute onset of fever mild chills decreased appetite over the last 48 hours. He does have mild cough and he is hypoxic on room air. Course 4-5 L of oxygen to keep them around 94-95%. He is normally not on any oxygen at home. His temperature is elevated. He feels clinically a bone 102. He hasn't eaten hardly at all today. Feels weak dizzy when he stands up. Eyes any diarrhea. Mild nausea. Eyes any genitourinary complaints although he states he doesn't think his bladder empties completely particularly during the daytime. States his best right is usually first thing in the morning. Known to have benign prostatic hypertrophy. Plan he will require septic workup. Because he is needing to 4-5 L of oxygen and likely has a component of COPD he will have ABGs done as part of his workup. View chest x- ray to be done. He will be given Levaquin 750 mils grams IV as his blood cultures 2 been collected. Tylenol 650 mg by mouth for fever relief. Zofran 4 mg IV for nausea relief. - Re-Assessments/Exams Free Text/Narrative Re-Assessment/Exam: 01/24/19 19:00 chest x-ray done portably reveals mild to moderate cardiomegaly. Visualized lung chaudhary revealed perhaps very mild vascular congestion but no defined defined pneumonic infiltrates. Mild prominence of both pulmonary arteries evident. No pleural effusions. No osseous abnormalities.ABGs reveal a pH of 7.47. PCO2 is 31.5. PO2 is 81.0. Bicarbonate is 22.4 saturations are 97.2% on 4 L per nasal cannula. 01/24/19 19:52 nurses have cathetered him and found that his urine was very cloudy and contained a large a lot of mucus with a foul odor. Of note he only had 10 mils of urine in his bladder but his depends was full of incontinence both of stool and urine. He therefore at some point time and his hospitalization requires a bladder scan to be done to see what his post residual is. However this at this time appears to be the source of his infection but his labs are not yet back. 01/24/19 20:30 Labs are starting to come back. White count is elevated at 17.0. The differential is pending. Hemoglobin is 14.3 with hematocrit of 40.9. Platelet count is 138,000. PT is 22.2 with an INR of 2.13 slightly subtherapeutic for atrophic. Blood gases revealed a pH of 7.47 with a PCO2 of 31.5 i.e. non-retainer. PO2 was 81 bicarbonate was 22.4 saturations were 97.2% and this was done on 4 L/m by nasal cannula. Sodium slightly low at 132 with a potassium of 3.8. Chloride 100 with a bicarbonate 25. Anion gap is 10.8. BUN is 18 with a creatinine of 1.4. Total bilirubin is 1.3. Liver function otherwise normal. Troponin I is normal at 0.017. C-reactive protein markedly elevated at 20.7. BNP is 2979. Total protein 6.7. Albumin fraction 3.1 globulin 3.6. Urinalysis obtained by catheterization and only 10 mils of urine was obtained. It is cloudy contains 3+ proteinuria 3+ occult blood positive nitrates 1+ bilirubin 3+ leukocyte esterase. This largest 20-30 RBCs per high-power field and 75-100 WBCs per high-power field with moderate WBC clumps. There is moderate amorphous segment and many bacteria. A urine culture was ordered. I have spoken with on-call hospice Dr. Scott and she will attend the patient in the ED with a view to admission to the hospital for urosepsis. 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
[2019-01-24] MEDS ORDERED: Furosemide 40 MG/4 ML VIAL IVPUSH ONE (20:58)
--- NOTE | 2019-01-24 21:32 | PCM.HP.2 ---
H&P History of Present Illness - General Date of Service: 01/24/19 Admit Problem/Dx: Admission Diagnosis/Problem Admission Diagnosis/Problem Acute febrile illness - History of Present Illness Initial Comments - Free Text/Narative: This is an 88 year old male with chronic atrial fibrillation on warfarin who was brought to the ED by his son for fever and chills x 1 day. As per patient he had been having urinary urgency for 3 days, yesterday started having chills and fever and today he had a decreased appetite and malaise for which he was brought to the ED. - Related Data Allergies/Adverse Reactions: Allergies Allergy/AdvReac Type Severity Reaction Status Date / Time No Known Allergies Allergy Verified 11/06/17 11:42 Home Medications: Home Meds Metoprolol Tartrate 50 mg PO BID 01/05/16 [History] Calcium Carbonate/Vitamin D3 [Calcium 600-Vit D3 500 Softgel] 1 tab PO DAILY [History] Cyanocobalamin (Vitamin B-12) [Vitamin B-12] 1,000 mcg PO DAILY 02/01/16 [ History] Warfarin Sodium [Jantoven] 3 mg PO DAILY 02/01/16 [History] Diltiazem HCl [Dilt-Xr] 180 mg PO DAILY 09/24/16 [History] Simvastatin 10 mg PO DAILY 09/24/16 [History] Ranitidine HCl [Zantac 75] 75 mg PO BID #60 tablet 09/25/16 [Rx] Furosemide [Lasix] 20 mg PO DAILY 01/24/19 [History] Omeprazole Magnesium [Prilosec] 20 mg PO BEDTIME 01/24/19 [History] Past Medical History HEENT History: Reports: Hard of Hearing, Impaired Vision, Other (See Below) Other HEENT History: hearing aid, dentures, glasses Cardiovascular History: Reports: Afib (Currently on Coumadin diltiazem and metoprolol for rate control.), High Cholesterol, Hypertension Other Cardiovascular History: Mitral and aortic heart valve diseases, aortic insufficiency, EF of 50-55% Respiratory History: Reports: COPD, Sleep Apnea, SOB Gastrointestinal History: Reports: Colon Polyp, Fecal Incontinence, Gastritis, GERD, GI Bleed, Other (See Below) Other Gastrointestinal History: dysphagia, GI bleed, adenoma of duodenum Genitourinary History: Reports: BPH, Other (See Below) Other Genitourinary History: nocturia ENROLLED AGENT History: Reports: None Musculoskeletal History: Reports: Arthritis, Osteoarthritis Other Musculoskeletal History: Chronic spine pain, degenerative joing disease Neurological History: Reports: Other (See Below) Other Neuro History: lightheadedness, dizziness Psychiatric History: Reports: Depression Endocrine/Metabolic History: Reports: None Hematologic History: Reports: None Immunologic History: Reports: None Oncologic (Cancer) History: Reports: None Dermatologic History: Reports: None - Past Surgical History Head Surgeries/Procedures: Reports: None HEENT Surgical History: Reports: Tonsillectomy Cardiovascular Surgical History: Reports: Other (See Below) Other Cardiovascular Surgeries/Procedures: cardiac cath Respiratory Surgical History: Reports: None GI Surgical History: Reports: Colonoscopy, EGD Male Surgical History: Reports: Vasectomy Endocrine Surgical History: Reports: None Neurological Surgical History: Reports: None Musculoskeletal Surgical History: Reports: Carpal Tunnel, Hip Replacement, Knee Replacement, Other (See Below) Other Musculoskeletal Surgeries/Procedures:: Right ulnar nerve surgery, carpal tunnel release Oncologic Surgical History: Reports: None Dermatological Surgical History: Reports: None Social & Family History - Family History Family Medical History: Noncontributory - Tobacco Use Smoking Status *Q: Current Every Day Smoker Years of Tobacco use: 70 Packs/Tins Daily: 2 - Caffeine Use Caffeine Use: Reports: Coffee, Soda, Tea Caffeine Use Comment: one cup of coffee in the morning and a half gallon of iced tea a day - Recreational Drug Use Recreational Drug Use: No - Living Situation & Occupation Living situation: Reports: , Alone Occupation: Retired H&P Review of Systems - Review of Systems: Review Of Systems: See Below General: Reports: Fever, Chills, Malaise, Weakness, Fatigue, Night Sweats, Diaphoresis, Decreased Appetite HEENT: Denies: Dysphasia, Ear Pain, Eye Pain, Headaches, Rhinitis, Post Nasal Drip, Sinus Congestion, Sore Throat, Visual Changes Pulmonary: Denies: Shortness of Breath, Wheezing, Pleuritic Chest Pain, Cough, Sputum Cardiovascular: Reports: Lightheadedness. Denies: Chest Pain, Palpitations, Dyspnea on Exertion, Orthopnea, PND, Edema, Syncope Gastrointestinal: Reports: Anorexia, Decreased Appetite. Denies: Abdominal Pain , Black Stool, Bloody Stool, Constipation, Diarrhea, Difficulty Swallowing, Distension, Flatus, Hematemesis, Hematochezia, Nausea, Vomiting Genitourinary: Reports: Frequency, Urgency, Other (urinary tenesmus). Denies: Dysuria, Burning, Pain, Incontinence, Hematuria, Discharge, Retention Musculoskeletal: Denies: Neck Pain, Shoulder Pain, Arm Pain, Back Pain, Joint Swelling, Muscle Pain Skin: Denies: Cyanosis, Jaundice, Mottled, Pallor, Diaphoresis, Dryness, Bruising Psychiatric: Denies: Confusion, Depression, Anxiety Neurological: Denies: Confusion, Dizziness, Headache, Numbness, Seizure, Syncope , Tingling Exam - Exam Exam: See Below - Vital Signs Vital Signs: Last Vital Signs Temp 36.7 C 01/24/19 20:45 Pulse 84 01/24/19 17:20 Resp 12 01/24/19 17:20 BP 156/68 H 01/24/19 17:20 Pulse Ox 86 L 01/24/19 17:20 Weight: 109.769 kg - Exam General: Alert, Oriented, Cooperative. No: Mild Distress HEENT: Conjunctiva Clear, EACs Clear, EOMI, Nares Patent, Posterior Pharynx Clear, Pupils Equal. No: Hearing Intact Neck: Supple, Trachea Midline. No: Full Range of Motion, Lymphadenopathy, Carotid Bruit Lungs: Clear to Auscultation, Normal Respiratory Effort. No: Crackles, Rales, Rhonchi, Wheezing Cardiovascular: Regular Rate, Regular Rhythm. No: Bradycardia, Tachycardia, Systolic Murmur, Diastolic Murmur, Rubs, Gallop/S3, Gallop/S4 GI/Abdominal Exam: Normal Bowel Sounds, Soft, Non-Tender, No Organomegaly, No Distention, No Mass. No: Distended, Guarding, Rigid, Rebound Back Exam: No: CVA Tenderness (L), CVA Tenderness (R) Extremities: Normal Inspection, Normal Range of Motion, Non-Tender, No Pedal Edema, Normal Capillary Refill Skin: Warm, Intact Neurological: Normal Speech Psychiatric: Alert, Normal Affect - Patient Data Lab Results Last 24 hrs: Laboratory Results - last 24 hr 01/24/19 01/24/19 01/24/19 Range/Units 14:33 18:40 18:40 WBC 17.00 H (4.23-9.07) K/mm3 RBC 4.34 L (4.63-6.08) M/mm3 Hgb 14.3 D (13.7-17.5) gm/dl Hct 40.9 (40.1-51.0) % MCV 94.2 H D (79.0-92.2) fl MCH 32.9 H (25.7-32.2) pg MCHC 35.0 (32.2-35.5) g/dl RDW Std Deviation 44.1 H (35.1-43.9) fL Plt Count 138 L (163-337) K/mm3 MPV 10.1 (9.4-12.3) fl Neutrophils % (Manual) 91 H (40-60) % Band Neutrophils % 0 (0-10) % Lymphocytes % (Manual) 9 L (20-40) % Atypical Lymphs % 0 % Monocytes % (Manual) 0 L (2-10) % Eosinophils % (Manual) 0 L (0.8-7.0) % Basophils % (Manual) 0 L (0.2-1.2) Platelet Estimate Decreased RBC Morph Comment Normal ESR (0-15) mm/hr PT (9.7-12.0) SECONDS INR Puncture Site ABG pH (7.35-7.45) ABG pCO2 (35.0-45.0) mmHg ABG pO2 (80.0-100.0) mmHg ABG HCO3 (22.0-26.0) meq/L ABG O2 Saturation (96.0-97.0) % ABG Base Excess (-2-2.0) Corby Test A-a Gradient mmHg O2 Delivery Device Oxygen Flow Rate FiO2 (21.00-100.00) % Sodium (136-145) mEq/L Potassium (3.5-5.1) mEq/L Chloride (98-107) mEq/L Carbon Dioxide (21-32) mEq/L Anion Gap (5-15) BUN (7-18) mg/dL Creatinine (0.7-1.3) mg/dL Est Cr Clr Drug Dosing mL/min Estimated GFR (MDRD) (>60) mL/min BUN/Creatinine Ratio (14-18) Glucose (83-115) mg/dL Lactic Acid (0.4-2.0) mmol/L Calcium (8.5-10.1) mg/dL Magnesium (1.8-2.4) mg/dl Total Bilirubin (0.2-1.0) mg/dL AST (15-37) U/L ALT (16-63) U/L Alkaline Phosphatase (46-116) U/L Troponin I < 0.017 (0.00-0.056) ng/mL C-Reactive Protein (<1.0) mg/dL NT-Pro-B Natriuret Pep (0-450) pg/mL Total Protein (6.4-8.2) g/dl Albumin (3.4-5.0) g/dl Globulin gm/dL Albumin/Globulin Ratio (1-2) Urine Color Yellow (Yellow) Urine Appearance Cloudy H (Clear) Urine pH 5.5 (5.0-8.0) Ur Specific [place] > or = 1.030 (1.005-1.030) Urine Protein 3+ H (Negative) Urine Glucose (UA) Negative (Negative) Urine Ketones Trace H (Negative) Urine Occult Blood 3+ H (Negative) Urine Nitrite Positive H (Negative) Urine Bilirubin 1+ H (Negative) Urine Urobilinogen 1.0 (0.2-1.0) Ur Leukocyte Esterase 3+ H (Negative) Urine RBC 20-30 H (0-5) /hpf Urine WBC 75-100 H (0-5) /hpf Urine WBC Clumps Moderate (NOT SEEN) /hpf Ur Squamous Epith Cells 0-5 (0-5) /hpf Amorphous Sediment Moderate H (NOT SEEN) /hpf Urine Bacteria Many H (FEW) /hpf Fine Granular Casts 0-5 (0-5) /lpf Urine Mucus Rare (FEW) /hpf 01/24/19 01/24/19 01/24/19 Range/Units 18:40 18:40 18:40 WBC (4.23-9.07) K/mm3 RBC (4.63-6.08) M/mm3 Hgb (13.7-17.5) gm/dl Hct (40.1-51.0) % MCV (79.0-92.2) fl MCH (25.7-32.2) pg MCHC (32.2-35.5) g/dl RDW Std Deviation (35.1-43.9) fL Plt Count (163-337) K/mm3 MPV (9.4-12.3) fl Neutrophils % (Manual) (40-60) % Band Neutrophils % (0-10) % Lymphocytes % (Manual) (20-40) % Atypical Lymphs % % Monocytes % (Manual) (2-10) % Eosinophils % (Manual) (0.8-7.0) % Basophils % (Manual) (0.2-1.2) Platelet Estimate RBC Morph Comment ESR (0-15) mm/hr PT 22.2 H D (9.7-12.0) SECONDS INR 2.13 Puncture Site ABG pH (7.35-7.45) ABG pCO2 (35.0-45.0) mmHg ABG pO2 (80.0-100.0) mmHg ABG HCO3 (22.0-26.0) meq/L ABG O2 Saturation (96.0-97.0) % ABG Base Excess (-2-2.0) Corby Test A-a Gradient mmHg O2 Delivery Device Oxygen Flow Rate FiO2 (21.00-100.00) % Sodium 132 L D (136-145) mEq/L Potassium 3.8 (3.5-5.1) mEq/L Chloride 100 (98-107) mEq/L Carbon Dioxide 25 (21-32) mEq/L Anion Gap 10.8 (5-15) BUN 18 (7-18) mg/dL Creatinine 1.4 H (0.7-1.3) mg/dL Est Cr Clr Drug Dosing 44.04 mL/min Estimated GFR (MDRD) 48 (>60) mL/min BUN/Creatinine Ratio 12.9 L (14-18) Glucose 132 H (83-115) mg/dL Lactic Acid 1.9 (0.4-2.0) mmol/L Calcium 9.0 (8.5-10.1) mg/dL Magnesium 1.4 L (1.8-2.4) mg/dl Total Bilirubin 1.3 H (0.2-1.0) mg/dL AST 21 (15-37) U/L ALT 18 (16-63) U/L Alkaline Phosphatase 71 (46-116) U/L Troponin I (0.00-0.056) ng/mL C-Reactive Protein 20.7 H* (<1.0) mg/dL NT-Pro-B Natriuret Pep (0-450) pg/mL Total Protein 6.7 (6.4-8.2) g/dl Albumin 3.1 L (3.4-5.0) g/dl Globulin 3.6 gm/dL Albumin/Globulin Ratio 0.9 L (1-2) Urine Color (Yellow) Urine Appearance (Clear) Urine pH (5.0-8.0) Ur Specific [place] (1.005-1.030) Urine Protein (Negative) Urine Glucose (UA) (Negative) Urine Ketones (Negative) Urine Occult Blood (Negative) Urine Nitrite (Negative) Urine Bilirubin (Negative) Urine Urobilinogen (0.2-1.0) Ur Leukocyte Esterase (Negative) Urine RBC (0-5) /hpf Urine WBC (0-5) /hpf Urine WBC Clumps (NOT SEEN) /hpf Ur Squamous Epith Cells (0-5) /hpf Amorphous Sediment (NOT SEEN) /hpf Urine Bacteria (FEW) /hpf Fine Granular Casts (0-5) /lpf Urine Mucus (FEW) /hpf 01/24/19 01/24/19 01/24/19 Range/Units 18:44 19:33 19:33 WBC (4.23-9.07) K/mm3 RBC (4.63-6.08) M/mm3 Hgb (13.7-17.5) gm/dl Hct (40.1-51.0) % MCV (79.0-92.2) fl MCH (25.7-32.2) pg MCHC (32.2-35.5) g/dl RDW Std Deviation (35.1-43.9) fL Plt Count (163-337) K/mm3 MPV (9.4-12.3) fl Neutrophils % (Manual) (40-60) % Band Neutrophils % (0-10) % Lymphocytes % (Manual) (20-40) % Atypical Lymphs % % Monocytes % (Manual) (2-10) % Eosinophils % (Manual) (0.8-7.0) % Basophils % (Manual) (0.2-1.2) Platelet Estimate RBC Morph Comment ESR 30 H (0-15) mm/hr PT (9.7-12.0) SECONDS INR Puncture Site Rt radial ABG pH 7.47 H (7.35-7.45) ABG pCO2 31.5 L (35.0-45.0) mmHg ABG pO2 81.0 (80.0-100.0) mmHg ABG HCO3 22.4 (22.0-26.0) meq/L ABG O2 Saturation 97.2 H (96.0-97.0) % ABG Base Excess -0.2 (-2-2.0) Corby Test Positive A-a Gradient 137 mmHg O2 Delivery Device Nasal cannula Oxygen Flow Rate 4.0 FiO2 36.00 (21.00-100.00) % Sodium (136-145) mEq/L Potassium (3.5-5.1) mEq/L Chloride (98-107) mEq/L Carbon Dioxide (21-32) mEq/L Anion Gap (5-15) BUN (7-18) mg/dL Creatinine (0.7-1.3) mg/dL Est Cr Clr Drug Dosing mL/min Estimated GFR (MDRD) (>60) mL/min BUN/Creatinine Ratio (14-18) Glucose (83-115) mg/dL Lactic Acid (0.4-2.0) mmol/L Calcium (8.5-10.1) mg/dL Magnesium (1.8-2.4) mg/dl Total Bilirubin (0.2-1.0) mg/dL AST (15-37) U/L ALT (16-63) U/L Alkaline Phosphatase (46-116) U/L Troponin I (0.00-0.056) ng/mL C-Reactive Protein (<1.0) mg/dL NT-Pro-B Natriuret Pep 2979 H (0-450) pg/mL Total Protein (6.4-8.2) g/dl Albumin (3.4-5.0) g/dl Globulin gm/dL Albumin/Globulin Ratio (1-2) Urine Color (Yellow) Urine Appearance (Clear) Urine pH (5.0-8.0) Ur Specific [place] (1.005-1.030) Urine Protein (Negative) Urine Glucose (UA) (Negative) Urine Ketones (Negative) Urine Occult Blood (Negative) Urine Nitrite (Negative) Urine Bilirubin (Negative) Urine Urobilinogen (0.2-1.0) Ur Leukocyte Esterase (Negative) Urine RBC (0-5) /hpf Urine WBC (0-5) /hpf Urine WBC Clumps (NOT SEEN) /hpf Ur Squamous Epith Cells (0-5) /hpf Amorphous Sediment (NOT SEEN) /hpf Urine Bacteria (FEW) /hpf Fine Granular Casts (0-5) /lpf Urine Mucus (FEW) /hpf Result Diagrams: 01/24/19 18:40 01/24/19 18:40 Problem List Initiated/Reviewed/Updated: Yes Orders Last 24hrs: Active Orders 24 hr Category Date Time Status Admission Status [Patient Status] [ADT] Routine ADT 01/24/19 21:01 Active Bladder Scan [RC] ASDIRECTED Care 01/24/19 19:05 Active EKG Documentation Completion [RC] STAT Care 01/24/19 17:55 Active Chest 1V Frontal [CR] Routine Exams 01/24/19 18:02 Taken CULTURE BLOOD [BC] Stat Lab 01/24/19 18:39 Received CULTURE BLOOD [BC] Stat Lab 01/24/19 19:33 Received CULTURE URINE [RM] Routine Lab 01/24/19 19:45 Received PSA SCREEN [CHEM] Stat Lab 01/24/19 19:33 Received Dextrose 5%-0.9% NaCl [Dextrose 5%-Normal Saline] 1,000 Med 01/24/19 18:00 Active ml IV ASDIRECTED Blood Culture x2 Reflex Set [OM.PC] Stat Oth 01/24/19 17:56 Ordered Medication Orders Dextrose/Sodium Chloride (Dextrose 5%-Normal Saline) 1,000 mls @ 150 mls/hr IV ASDIRECTED MONIKA Last Admin: 01/24/19 19:09 Dose: 150 mls/hr Assessment/Plan Comment:: UTI PLAN - Start ceftriaxone, to complete 5 days - Urine culture - Blood cultures - Monitor temperature Acute hypoxemia PLAN - Continue O2 therapy - Attempt wean in AM - Pulse oximetry with vital signs by nursing Atrial fibrillation on warfarin PLAN - Telemetry - Continue warfarin - Pharmacy consult for interaction check and adjustment - Echocardiogram in the AM Hyponatremia and Hypomagnesemia PLAN - Magnesium sulfate 2g IV - Repeat BMP , Mg and Pi in AM Lower extremity edema Concern for heart failure PLAN - Echocardiogram in the AM Hard of hearing PLAN - Make sure to make patient aware when communicating with him - Confirm placement of hearing aids PROPHYLAXIS: DVT- on warfarin GI- Home PPI CODE STATUS: DNR/DNI DISPOSITION: Patient will be admitted for IV ATB therapy, monitorization of oxygenation, discharge unlikely in the next 24 hours. Marcelo Syed [phone]
[2019-01-24] MEDS ORDERED: Ondansetron 4 MG Tab.DIS PO PRN (22:14)
[2019-01-24] MEDS ORDERED: cefTRIAXone 1 GM in Sodium Chloride 0.9% 100 ML IV STA (22:14)
[2019-01-24] MEDS ORDERED: Ondansetron 4 MG/2 ML SDV IV PRN (22:14)
[2019-01-24] MEDS: Metoprolol Tartrate 50 MG Tab PO SCH (23:22)
[2019-01-24] MEDS ORDERED: Warfarin 3 MG Tab PO ONE (23:45)
[2019-01-25] MEDS: Lactated Ringers 1,000 ML IV SCH ×3 (00:34→16:47)
[2019-01-25] MEDS: Acetaminophen 325 MG Tab PO PRN ×2 (02:36→20:52)
--- NOTE | 2019-01-25 08:00 | CR ---
Chest: Portable view of the chest was obtained. Comparison: Prior chest x-ray of 01/05/16. Heart size within normal limits for portable technique. Tortuous thoracic aorta is seen. Lungs are clear with no acute parenchymal change. Scoliosis is noted within the spine. Impression: 1. Nothing acute is appreciated on portable chest x-ray. Diagnostic code #2
[2019-01-25] MEDS ORDERED: Magnesium Sulfate/Water 4 GM in Premix Bag 1 BAG IV ONE (08:49)
[2019-01-25] MEDS ORDERED: Warfarin 3 MG Tab PO SCH ×2 (09:00→18:00)
[2019-01-25] MEDS ORDERED: Calcium Carbonate/Vitamin D3 600 MG-200 Units Tab PO SCH (09:00)
[2019-01-25] MEDS: Simvastatin 10 MG Tab PO SCH (10:17)
[2019-01-25] MEDS: Furosemide 20 MG Tab PO SCH (10:17)
[2019-01-25] MEDS: Cyanocobalamin (Vitamin B12) 1,000 MCG Tab PO SCH (10:17)
[2019-01-25] MEDS: Diltiazem 180 MG Cap.CD PO SCH (10:17)
[2019-01-25] MEDS: Metoprolol Tartrate 25 MG Tab PO SCH ×2 (11:22→23:42)
[2019-01-25] MEDS: Metoprolol Tartrate 50 MG Tab PO SCH (18:13)
--- NOTE | 2019-01-25 20:11 | PCM.PN ---
- General Info Date of Service: 01/25/19 - Patient Data Vitals - Most Recent: Last Vital Signs Temp 36.9 C 01/25/19 11:25 Pulse 83 01/25/19 18:21 Resp 20 01/25/19 18:21 BP 110/60 01/25/19 18:21 Pulse Ox 92 L 01/25/19 18:21 Weight - Most Recent: 107.819 kg I&O - Last 24 Hours: Intake & Output 01/25/19 01/25/19 01/25/19 06:59 14:59 22:59 Intake Total 2131 120 2019 Balance 2131 120 2019 Lab Results Last 24 Hours: Laboratory Results - last 24 hr 01/24/19 01/24/19 01/24/19 Range/Units 14:33 18:40 18:40 WBC (4.23-9.07) K/mm3 RBC (4.63-6.08) M/mm3 Hgb (13.7-17.5) gm/dl Hct (40.1-51.0) % MCV (79.0-92.2) fl MCH (25.7-32.2) pg MCHC (32.2-35.5) g/dl RDW Std Deviation (35.1-43.9) fL Plt Count (163-337) K/mm3 MPV (9.4-12.3) fl Neut % (Auto) (34.0-67.9) % Lymph % (Auto) (21.8-53.1) % [place] % (Auto) (5.3-12.2) % Eos % (Auto) (0.8-7.0) Baso % (Auto) (0.1-1.2) % Neut # (Auto) (1.78-5.38) K/mm3 Lymph # (Auto) (1.32-3.57) K/mm3 [place] # (Auto) (0.30-0.82) K/mm3 Eos # (Auto) (0.04-0.54) K/mm3 Baso # (Auto) (0.01-0.08) K/mm3 Neutrophils % (Manual) 91 H (40-60) % Band Neutrophils % 0 (0-10) % Lymphocytes % (Manual) 9 L (20-40) % Atypical Lymphs % 0 % Monocytes % (Manual) 0 L (2-10) % Eosinophils % (Manual) 0 L (0.8-7.0) % Basophils % (Manual) 0 L (0.2-1.2) Manual Slide Review Platelet Estimate Decreased RBC Morph Comment Normal ESR (0-15) mm/hr PT (9.7-12.0) SECONDS INR Sodium (136-145) mEq/L Potassium (3.5-5.1) mEq/L Chloride (98-107) mEq/L Carbon Dioxide (21-32) mEq/L Anion Gap (5-15) BUN (7-18) mg/dL Creatinine (0.7-1.3) mg/dL Est Cr Clr Drug Dosing mL/min Estimated GFR (MDRD) (>60) mL/min BUN/Creatinine Ratio (14-18) Glucose (83-115) mg/dL Lactic Acid (0.4-2.0) mmol/L Calcium (8.5-10.1) mg/dL Phosphorus (2.6-4.7) mg/dL Magnesium (1.8-2.4) mg/dl Troponin I < 0.017 (0.00-0.056) ng/mL C-Reactive Protein (<1.0) mg/dL NT-Pro-B Natriuret Pep (0-450) pg/mL PSA Screen (0.0-4.0) ng/mL Urine RBC 20-30 H (0-5) /hpf Urine WBC 75-100 H (0-5) /hpf Urine WBC Clumps Moderate (NOT SEEN) /hpf Ur Squamous Epith Cells 0-5 (0-5) /hpf Amorphous Sediment Moderate H (NOT SEEN) /hpf Urine Bacteria Many H (FEW) /hpf Fine Granular Casts 0-5 (0-5) /lpf Urine Mucus Rare (FEW) /hpf 01/24/19 01/24/19 01/24/19 Range/Units 18:40 19:33 19:33 WBC (4.23-9.07) K/mm3 RBC (4.63-6.08) M/mm3 Hgb (13.7-17.5) gm/dl Hct (40.1-51.0) % MCV (79.0-92.2) fl MCH (25.7-32.2) pg MCHC (32.2-35.5) g/dl RDW Std Deviation (35.1-43.9) fL Plt Count (163-337) K/mm3 MPV (9.4-12.3) fl Neut % (Auto) (34.0-67.9) % Lymph % (Auto) (21.8-53.1) % [place] % (Auto) (5.3-12.2) % Eos % (Auto) (0.8-7.0) Baso % (Auto) (0.1-1.2) % Neut # (Auto) (1.78-5.38) K/mm3 Lymph # (Auto) (1.32-3.57) K/mm3 [place] # (Auto) (0.30-0.82) K/mm3 Eos # (Auto) (0.04-0.54) K/mm3 Baso # (Auto) (0.01-0.08) K/mm3 Neutrophils % (Manual) (40-60) % Band Neutrophils % (0-10) % Lymphocytes % (Manual) (20-40) % Atypical Lymphs % % Monocytes % (Manual) (2-10) % Eosinophils % (Manual) (0.8-7.0) % Basophils % (Manual) (0.2-1.2) Manual Slide Review Platelet Estimate RBC Morph Comment ESR 30 H (0-15) mm/hr PT (9.7-12.0) SECONDS INR Sodium (136-145) mEq/L Potassium (3.5-5.1) mEq/L Chloride (98-107) mEq/L Carbon Dioxide (21-32) mEq/L Anion Gap (5-15) BUN (7-18) mg/dL Creatinine (0.7-1.3) mg/dL Est Cr Clr Drug Dosing mL/min Estimated GFR (MDRD) (>60) mL/min BUN/Creatinine Ratio (14-18) Glucose (83-115) mg/dL Lactic Acid (0.4-2.0) mmol/L Calcium (8.5-10.1) mg/dL Phosphorus (2.6-4.7) mg/dL Magnesium (1.8-2.4) mg/dl Troponin I (0.00-0.056) ng/mL C-Reactive Protein 20.7 H* (<1.0) mg/dL NT-Pro-B Natriuret Pep 2979 H (0-450) pg/mL PSA Screen (0.0-4.0) ng/mL Urine RBC (0-5) /hpf Urine WBC (0-5) /hpf Urine WBC Clumps (NOT SEEN) /hpf Ur Squamous Epith Cells (0-5) /hpf Amorphous Sediment (NOT SEEN) /hpf Urine Bacteria (FEW) /hpf Fine Granular Casts (0-5) /lpf Urine Mucus (FEW) /hpf 01/24/19 01/25/19 01/25/19 Range/Units 19:33 04:40 04:40 WBC 20.23 H (4.23-9.07) K/mm3 RBC 3.99 L (4.63-6.08) M/mm3 Hgb 13.3 L (13.7-17.5) gm/dl Hct 37.8 L (40.1-51.0) % MCV 94.7 H (79.0-92.2) fl MCH 33.3 H (25.7-32.2) pg MCHC 35.2 (32.2-35.5) g/dl RDW Std Deviation 44.0 H (35.1-43.9) fL Plt Count 102 L (163-337) K/mm3 MPV 10.1 (9.4-12.3) fl Neut % (Auto) 86.6 H (34.0-67.9) % Lymph % (Auto) 5.5 L (21.8-53.1) % [place] % (Auto) 7.8 (5.3-12.2) % Eos % (Auto) 0 L (0.8-7.0) Baso % (Auto) 0.1 (0.1-1.2) % Neut # (Auto) 17.51 H (1.78-5.38) K/mm3 Lymph # (Auto) 1.12 L (1.32-3.57) K/mm3 [place] # (Auto) 1.57 H (0.30-0.82) K/mm3 Eos # (Auto) 0.01 L (0.04-0.54) K/mm3 Baso # (Auto) 0.02 (0.01-0.08) K/mm3 Neutrophils % (Manual) (40-60) % Band Neutrophils % (0-10) % Lymphocytes % (Manual) (20-40) % Atypical Lymphs % % Monocytes % (Manual) (2-10) % Eosinophils % (Manual) (0.8-7.0) % Basophils % (Manual) (0.2-1.2) Manual Slide Review Abnormal smear Platelet Estimate RBC Morph Comment ESR (0-15) mm/hr PT 23.3 H (9.7-12.0) SECONDS INR 2.24 Sodium (136-145) mEq/L Potassium (3.5-5.1) mEq/L Chloride (98-107) mEq/L Carbon Dioxide (21-32) mEq/L Anion Gap (5-15) BUN (7-18) mg/dL Creatinine (0.7-1.3) mg/dL Est Cr Clr Drug Dosing mL/min Estimated GFR (MDRD) (>60) mL/min BUN/Creatinine Ratio (14-18) Glucose (83-115) mg/dL Lactic Acid (0.4-2.0) mmol/L Calcium (8.5-10.1) mg/dL Phosphorus (2.6-4.7) mg/dL Magnesium (1.8-2.4) mg/dl Troponin I (0.00-0.056) ng/mL C-Reactive Protein (<1.0) mg/dL NT-Pro-B Natriuret Pep (0-450) pg/mL PSA Screen 54.7 H (0.0-4.0) ng/mL Urine RBC (0-5) /hpf Urine WBC (0-5) /hpf Urine WBC Clumps (NOT SEEN) /hpf Ur Squamous Epith Cells (0-5) /hpf Amorphous Sediment (NOT SEEN) /hpf Urine Bacteria (FEW) /hpf Fine Granular Casts (0-5) /lpf Urine Mucus (FEW) /hpf 01/25/19 01/25/19 Range/Units 04:40 10:11 WBC (4.23-9.07) K/mm3 RBC (4.63-6.08) M/mm3 Hgb (13.7-17.5) gm/dl Hct (40.1-51.0) % MCV (79.0-92.2) fl MCH (25.7-32.2) pg MCHC (32.2-35.5) g/dl RDW Std Deviation (35.1-43.9) fL Plt Count (163-337) K/mm3 MPV (9.4-12.3) fl Neut % (Auto) (34.0-67.9) % Lymph % (Auto) (21.8-53.1) % [place] % (Auto) (5.3-12.2) % Eos % (Auto) (0.8-7.0) Baso % (Auto) (0.1-1.2) % Neut # (Auto) (1.78-5.38) K/mm3 Lymph # (Auto) (1.32-3.57) K/mm3 [place] # (Auto) (0.30-0.82) K/mm3 Eos # (Auto) (0.04-0.54) K/mm3 Baso # (Auto) (0.01-0.08) K/mm3 Neutrophils % (Manual) (40-60) % Band Neutrophils % (0-10) % Lymphocytes % (Manual) (20-40) % Atypical Lymphs % % Monocytes % (Manual) (2-10) % Eosinophils % (Manual) (0.8-7.0) % Basophils % (Manual) (0.2-1.2) Manual Slide Review Platelet Estimate RBC Morph Comment ESR (0-15) mm/hr PT (9.7-12.0) SECONDS INR Sodium 135 L (136-145) mEq/L Potassium 3.9 (3.5-5.1) mEq/L Chloride 102 (98-107) mEq/L Carbon Dioxide 24 (21-32) mEq/L Anion Gap 12.9 (5-15) BUN 22 H (7-18) mg/dL Creatinine 1.6 H (0.7-1.3) mg/dL Est Cr Clr Drug Dosing 37.45 mL/min Estimated GFR (MDRD) 41 (>60) mL/min BUN/Creatinine Ratio 13.8 L (14-18) Glucose 111 (83-115) mg/dL Lactic Acid 1.2 (0.4-2.0) mmol/L Calcium 8.3 L (8.5-10.1) mg/dL Phosphorus 3.0 (2.6-4.7) mg/dL Magnesium 1.4 L (1.8-2.4) mg/dl Troponin I (0.00-0.056) ng/mL C-Reactive Protein (<1.0) mg/dL NT-Pro-B Natriuret Pep (0-450) pg/mL PSA Screen (0.0-4.0) ng/mL Urine RBC (0-5) /hpf Urine WBC (0-5) /hpf Urine WBC Clumps (NOT SEEN) /hpf Ur Squamous Epith Cells (0-5) /hpf Amorphous Sediment (NOT SEEN) /hpf Urine Bacteria (FEW) /hpf Fine Granular Casts (0-5) /lpf Urine Mucus (FEW) /hpf Fidencio Results Last 24 Hours: Microbiology 01/24/19 18:39 Aerobic Blood Culture - Preliminary Blood - Venous Gram Negative Rods Anaerobic Blood Culture - Preliminary Gram Negative Rods 01/24/19 19:33 Aerobic Blood Culture - Preliminary Blood - Venous - Lab Draw Gram Negative Rods Anaerobic Blood Culture - Preliminary Gram Negative Rods 01/24/19 19:45 Urine Culture - Preliminary Urine, Clean Catch Gram Negative Rods Med Orders - Current: Current Medications Acetaminophen (Tylenol) 650 mg PO Q4H PRN PRN Reason: Pain (Mild 1-3)/fever Last Admin: 01/25/19 02:36 Dose: 650 mg Cyanocobalamin (Vitamin B12) 1,000 mcg PO DAILY [facility] Last Admin: 01/25/19 10:17 Dose: 1,000 mcg Diltiazem HCl (Cardizem Cd) 180 mg PO DAILY [facility] Last Admin: 01/25/19 10:17 Dose: 180 mg Furosemide (Lasix) 20 mg PO DAILY [facility] Last Admin: 01/25/19 10:17 Dose: 20 mg Lactated Ringer's (Ringers, Lactated) 1,000 mls @ 125 mls/hr IV ASDIRECTED [facility] Last Admin: 01/25/19 16:47 Dose: 125 mls/hr Ceftriaxone Sodium 1 gm/ (Sodium Chloride) 100 mls @ 200 mls/hr IV BEDTIME [facility] Stop: 01/28/19 21:29 Metoprolol Tartrate (Lopressor) 25 mg PO Q12H [facility] Last Admin: 01/25/19 11:22 Dose: 25 mg Ondansetron HCl (Zofran) 4 mg IV Q4H PRN PRN Reason: Nausea/Vomiting Ondansetron HCl (Zofran Odt) 4 mg PO Q4H PRN PRN Reason: nausea, able to take PO Pantoprazole Sodium (Protonix) 40 mg PO BEDTIME [facility] Senna/Docusate Sodium (Senna Plus) 1 tab PO BID PRN PRN Reason: Constipation Simvastatin (Zocor) 10 mg PO DAILY [facility] Last Admin: 01/25/19 10:17 Dose: 10 mg Warfarin Sodium (Pharmacy To Dose - Warfarin) 1 dose .XX ASDIRECTED PRN PRN Reason: RX TO DOSE WARFARIN Discontinued Medications Acetaminophen (Tylenol) 650 mg PO ONETIME ONE Stop: 01/24/19 17:55 Last Admin: 01/24/19 19:06 Dose: 650 mg Calcium Carbonate (Calcium Carbonate/Vitamin D 600 Mg-200 Unit) 1 tab PO DAILY [facility] Last Admin: 01/25/19 18:13 Dose: Not Given Furosemide (Lasix) 40 mg IVPUSH NOW ONE Stop: 01/24/19 20:59 Last Admin: 01/24/19 21:16 Dose: 40 mg Dextrose/Sodium Chloride (Dextrose 5%-Normal Saline) 1,000 mls @ 150 mls/hr IV ASDIRECTED [facility] Last Admin: 01/24/19 19:09 Dose: 150 mls/hr Levofloxacin/Dextrose 750 mg/ (Premix) 150 mls @ 100 mls/hr IV ONETIME ONE Stop: 01/24/19 19:30 Last Admin: 01/24/19 19:34 Dose: 100 mls/hr Ceftriaxone Sodium 1 gm/ (Sodium Chloride) 100 mls @ 200 mls/hr IV Q24H STA Stop: 01/24/19 22:43 Last Admin: 01/24/19 23:18 Dose: 200 mls/hr Magnesium Sulfate 4 gm/ Premix 50 mls @ 12.5 mls/hr IV ONETIME ONE Stop: 01/25/19 12:48 Last Admin: 01/25/19 09:05 Dose: 12.5 mls/hr Metoprolol Tartrate (Lopressor) 50 mg PO BID [facility] Last Admin: 01/25/19 18:13 Dose: Not Given Ondansetron HCl (Zofran) 4 mg IVPUSH ONETIME ONE Stop: 01/24/19 17:56 Last Admin: 01/24/19 19:03 Dose: 4 mg Warfarin Sodium (Coumadin) 3 mg PO DAILY [facility] Warfarin Sodium (Coumadin) 3 mg PO ONETIME ONE Stop: 01/24/19 23:46 Last Admin: 01/25/19 00:36 Dose: 3 mg Warfarin Sodium (Coumadin) 3 mg PO QPM MONIKA Stop: 01/25/19 18:01 Last Admin: 01/25/19 18:12 Dose: 3 mg - My Orders Last 24 Hours: My Active Orders 01/24/19 22:14 Oxygen Therapy [RC] PRN Up With Assistance [RC] QSHIFT VTE/DVT Education [RC] PER UNIT ROUTINE Vital Signs [RC] Q4HR Consult to Case Management/Surg Physician Asst [CONS] Routine OT Evaluation and Treatment [CONS] Routine PT Evaluation and Treatment [CONS] Routine Acetaminophen [Tylenol] 650 mg PO Q4H PRN Docusate Sodium/Sennosides [Senna Plus] 1 tab PO BID PRN Ondansetron [Zofran ODT] 4 mg PO Q4H PRN Ondansetron [Zofran] 4 mg IV Q4H PRN Resuscitation Status Routine 01/24/19 22:15 Lactated Ringers [Ringers, Lactated] 1,000 ml IV ASDIRECTED 01/24/19 22:30 Pharmacy to Dose - Warfarin 1 dose .XX ASDIRECTED PRN 01/25/19 09:00 Cyanocobalamin (Vitamin B12) [Vitamin B12] 1,000 mcg PO DAILY Diltiazem [Cardizem CD] 180 mg PO DAILY Furosemide [Lasix] 20 mg PO DAILY Simvastatin [Zocor] 10 mg PO DAILY 01/25/19 11:00 Metoprolol Tartrate [Lopressor] 25 mg PO Q12H 01/25/19 21:00 Pantoprazole [ProTONIX] 40 mg PO BEDTIME cefTRIAXone [Rocephin] 1 gm Sodium Chloride 0.9% [Normal Saline] 100 ml IV BEDTIME 01/25/19 Breakfast Regular Diet [DIET] 01/26/19 05:11 INR,PT,PROTHROMBIN TIME [COAG] AM 01/27/19 05:11 INR,PT,PROTHROMBIN TIME [COAG] AM 01/28/19 05:11 INR,PT,PROTHROMBIN TIME [COAG] AM 01/29/19 05:11 INR,PT,PROTHROMBIN TIME [COAG] AM - Plan Plan:: UTI PLAN - Start ceftriaxone, to complete 5 days - Urine culture - Blood cultures - Monitor temperature Acute hypoxemia PLAN - Continue O2 therapy - Attempt wean in AM - Pulse oximetry with vital signs by nursing Atrial fibrillation on warfarin PLAN - Telemetry - Continue warfarin - Pharmacy consult for interaction check and adjustment - Echocardiogram in the AM Hyponatremia and Hypomagnesemia PLAN - Magnesium sulfate 2g IV - Repeat BMP , Mg and Pi in AM Lower extremity edema Concern for heart failure PLAN - Echocardiogram in the AM Hard of hearing PLAN - Make sure to make patient aware when communicating with him - Confirm placement of hearing aids PROPHYLAXIS: DVT- on warfarin GI- Home PPI CODE STATUS: DNR/DNI DISPOSITION: Patient will be admitted for IV ATB therapy, monitorization of oxygenation, discharge unlikely in the next 24 hours. Marcelo Syed [phone]
[2019-01-25] MEDS: Pantoprazole 40 MG Tab.CR PO SCH (20:52)
[2019-01-25] MEDS: cefTRIAXone 1 GM in Sodium Chloride 0.9% 100 ML IV SCH (20:52)
[2019-01-25] MEDS ORDERED: OMEPRAZOLE MAGNESIUM 20 MG PO SCH (21:00)
[2019-01-26] MEDS: Lactated Ringers 1,000 ML IV SCH (01:04)
[2019-01-26] MEDS: Cyanocobalamin (Vitamin B12) 1,000 MCG Tab PO SCH (08:26)
[2019-01-26] MEDS: Furosemide 20 MG Tab PO SCH (08:26)
[2019-01-26] MEDS: Simvastatin 10 MG Tab PO SCH (08:27)
[2019-01-26] MEDS: Diltiazem 180 MG Cap.CD PO SCH (08:27)
[2019-01-26] MEDS ORDERED: Magnesium Sulfate/Water 4 GM in Premix Bag 1 BAG IV ONE (11:04)
[2019-01-26] MEDS: Metoprolol Tartrate 25 MG Tab PO SCH ×2 (12:17→22:24)
[2019-01-26] MEDS ORDERED: Warfarin 4 MG Tab PO SCH (18:00)
[2019-01-26] MEDS: cefTRIAXone 1 GM in Sodium Chloride 0.9% 100 ML IV SCH (22:23)
[2019-01-26] MEDS: Pantoprazole 40 MG Tab.CR PO SCH (22:24)
[2019-01-27] MEDS: Diltiazem 180 MG Cap.CD PO SCH (08:49)
[2019-01-27] MEDS: Simvastatin 10 MG Tab PO SCH (08:49)
[2019-01-27] MEDS: Furosemide 20 MG Tab PO SCH (08:49)
[2019-01-27] MEDS: Cyanocobalamin (Vitamin B12) 1,000 MCG Tab PO SCH (08:49)
[2019-01-27] MEDS: Metoprolol Tartrate 25 MG Tab PO SCH (12:19)
[2019-01-27 12:20] VITALS: BP 131/81; PULSE 82
--- NOTE | 2019-01-27 12:47 | PCM.DCSUM1 ---
Discharge Summary - Discharge Data Discharge Date: 01/27/19 Discharge Disposition: Home, Self-Care 01 Condition: Good - Referral to Home Health Primary Care Physician: Eva Downs MD - Patient Summary/Data Consults: Consultations 01/24/19 22:14 Consult to Case Management/Billposter [CONS] Routine OT Evaluation and Treatment [CONS] Routine PT Evaluation and Treatment [CONS] Routine - Discharge Plan *PRESCRIPTION DRUG MONITORING PROGRAM REVIEWED*: Not Applicable *COPY OF PRESCRIPTION DRUG MONITORING REPORT IN PATIENT PRUDENCE: Not Applicable Home Medications: Home Meds Metoprolol Tartrate 25 mg PO BID 01/05/16 [History] Cyanocobalamin (Vitamin B-12) [Vitamin B-12] 1,000 mcg PO DAILY 02/01/16 [ History] Warfarin Sodium [Jantoven] 3 mg PO DAILY 02/01/16 [History] Diltiazem HCl [Dilt-Xr] 180 mg PO DAILY 09/24/16 [History] Simvastatin 10 mg PO DAILY 09/24/16 [History] Furosemide [Lasix] 20 mg PO DAILY 01/24/19 [History] Omeprazole Magnesium [Prilosec] 20 mg PO BEDTIME 01/24/19 [History] Potassium Chloride 10 meq PO DAILY 01/25/19 [History] Patient Handouts: Chronic Obstructive Pulmonary Disease Exacerbation, Urinary Tract Infection, Adult, Smokeless Tobacco Information, Adult, Bacteremia, Steps to Quit Smoking Forms: ED Department Discharge Referrals: Eva Downs MD [Primary Care Provider] - 02/04/19 9:00 am Clif Nice MD [Physician] - 02/02/19 3:45 pm David Leal MD [Ordering Only Provider] - 02/25/19 11:30 am (Urologist. Appointment is in Central Standard Time. Go to the [facility] entrance to [facility].) - Discharge Summary/Plan Comment DC Time >30 min.: No Discharge Summary/Plan Comment: This is an 86-year old male who came to the ED complaining of fever and chills for 1 day. As per patient he had been having increased urinary frequency and urgency for approximately 1 week prior to developing fevers, once he developed chills his son decided to bring him in the ED for further evaluation. In the ED patient was found to be febrile 102, urine and blood were cultures and patient was started on Ceftriaxone (01/24/2019). Blood and urine cultures reported positive for pansensitive E. Coil. Patient has remained afebrile since admission. Transition to oral Keflex today, he will need to complete 7 days.(last dose 04/08) Echocardiogram performed reported severe bi-atrial dilation, EF-59%, moderate to severe tricuspid regurgitation, moderate mitral valve regurgitation, normal RSVP and no vegetations. Instructions to patient 1. Please be sure to follow up with your primary care physician in 3-5 days. 2. You will need to complete your antibiotic course until 01/30/19 3. Ambulate with assistance 4. Avoid changes position too quickly 5. Avoid drinking and chewing tobacco 6. Please take you medication as indicated, unless told so by your primary care doctor 7. Use your CPAP nightly to avoid complications from your sleep apnea Instructions to PCP 1. A new set of blood cultures were drawn 01/26, please follow up with results 2. He is being discharged on keflex to complete 7 days for bacteremia 3. Previous cultures were positive for pansensitive E. coli in blood and urine 4. Echocardiogram performed reported severe bi-atrial dilation, EF-59%, moderate to severe tricuspid regurgitation, moderate mitral valve regurgitation , normal RSVP and no vegetations 5. Please reinforce important of CPAP compliance and quitting tobacco chewing - Patient Data Vitals - Most Recent: Last Vital Signs Temp 36.8 C 01/27/19 08:48 Pulse 82 01/27/19 12:19 Resp 16 01/27/19 08:48 BP 131/81 01/27/19 12:19 Pulse Ox 92 L 01/27/19 12:18 Orthostatic Blood Pressure [ 126/66 Standing] Orthostatic Blood Pressure [ 117/66 Supine] Weight - Most Recent: 110.631 kg I&O - Last 24 hours: Intake & Output 01/26/19 01/27/19 01/27/19 22:59 06:59 14:59 Intake Total 1450 200 420 Balance 1450 200 420 Lab Results - Last 24 hrs: Laboratory Results - last 24 hr 01/27/19 01/27/19 01/27/19 Range/Units 05:30 05:30 05:30 WBC 9.75 H (4.23-9.07) K/mm3 RBC 4.07 L (4.63-6.08) M/mm3 Hgb 12.9 L (13.7-17.5) gm/dl Hct 38.8 L (40.1-51.0) % MCV 95.3 H (79.0-92.2) fl MCH 31.7 (25.7-32.2) pg MCHC 33.2 (32.2-35.5) g/dl RDW Std Deviation 44.6 H (35.1-43.9) fL Plt Count 124 L (163-337) K/mm3 MPV 10.8 (9.4-12.3) fl Neut % (Auto) 71.1 H (34.0-67.9) % Lymph % (Auto) 14.5 L (21.8-53.1) % [place] % (Auto) 12.7 H (5.3-12.2) % Eos % (Auto) 1.0 (0.8-7.0) Baso % (Auto) 0.4 (0.1-1.2) % Neut # (Auto) 6.93 H (1.78-5.38) K/mm3 Lymph # (Auto) 1.41 (1.32-3.57) K/mm3 [place] # (Auto) 1.24 H (0.30-0.82) K/mm3 Eos # (Auto) 0.10 (0.04-0.54) K/mm3 Baso # (Auto) 0.04 (0.01-0.08) K/mm3 PT 17.7 H (9.7-12.0) SECONDS INR 1.67 Sodium 134 L (136-145) mEq/L Potassium 3.7 (3.5-5.1) mEq/L Chloride 103 (98-107) mEq/L Carbon Dioxide 25 (21-32) mEq/L Anion Gap 9.7 (5-15) BUN 16 (7-18) mg/dL Creatinine 1.2 (0.7-1.3) mg/dL Est Cr Clr Drug Dosing 49.94 mL/min Estimated GFR (MDRD) 57 (>60) mL/min BUN/Creatinine Ratio 13.3 L (14-18) Glucose 100 (83-115) mg/dL Calcium 8.5 (8.5-10.1) mg/dL Magnesium 1.8 (1.8-2.4) mg/dl Total Bilirubin 0.5 (0.2-1.0) mg/dL AST 33 (15-37) U/L ALT 31 (16-63) U/L Alkaline Phosphatase 61 (46-116) U/L Total Protein 5.6 L (6.4-8.2) g/dl Albumin 2.1 L (3.4-5.0) g/dl Globulin 3.5 gm/dL Albumin/Globulin Ratio 0.6 L (1-2) VICTORIA Results - Last 24 hrs: Microbiology 01/26/19 11:52 Aerobic Blood Culture - Preliminary Blood - Venous NO GROWTH AFTER 1 DAY Anaerobic Blood Culture - Preliminary NO GROWTH AFTER 1 DAY 01/26/19 11:52 Aerobic Blood Culture - Preliminary Blood - Venous - Lab Draw NO GROWTH AFTER 1 DAY Anaerobic Blood Culture - Preliminary NO GROWTH AFTER 1 DAY 01/24/19 19:33 Aerobic Blood Culture - Final Blood - Venous - Lab Draw Escherichia Coli Anaerobic Blood Culture - Preliminary Escherichia Coli 01/24/19 18:39 Aerobic Blood Culture - Final Blood - Venous Escherichia Coli Anaerobic Blood Culture - Preliminary Escherichia Coli 01/24/19 19:45 Urine Culture - Final Urine, Clean Catch Escherichia Coli Med Orders - Current:
--- NOTE | 2019-01-27 14:07 | PCM.PN ---
- General Info Date of Service: 01/27/19 Admission Dx/Problem (Free Text): Admission Diagnosis/Problem Admission Diagnosis/Problem Acute febrile illness Subjective Update: Patient is doing well without any complaints of pain. He does continue to have difficulties with fecal and urine incontinence. Son today was discussing setting him up with assisted living after he gets back home. Patient has been afebrile for over 48 hours. - Review of Systems General: Reports: No Symptoms HEENT: Reports: No Symptoms Pulmonary: Reports: No Symptoms Cardiovascular: Reports: No Symptoms Gastrointestinal: Reports: No Symptoms Genitourinary: Reports: Incontinence. Denies: Frequency - Patient Data Vitals - Most Recent: Last Vital Signs Temp 98.2 F 01/27/19 08:48 Pulse 82 01/27/19 12:19 Resp 16 01/27/19 08:48 BP 131/81 01/27/19 12:19 Pulse Ox 92 L 01/27/19 12:18 Orthostatic Blood Pressure [ 126/66 Standing] Orthostatic Blood Pressure [ 117/66 Supine] Weight - Most Recent: 243 lb 14.4 oz I&O - Last 24 Hours: Intake & Output 01/26/19 01/27/19 01/27/19 22:59 06:59 14:59 Intake Total 1450 200 420 Balance 1450 200 420 Lab Results Last 24 Hours: Laboratory Results - last 24 hr 01/27/19 01/27/19 01/27/19 Range/Units 05:30 05:30 05:30 WBC 9.75 H (4.23-9.07) K/mm3 RBC 4.07 L (4.63-6.08) M/mm3 Hgb 12.9 L (13.7-17.5) gm/dl Hct 38.8 L (40.1-51.0) % MCV 95.3 H (79.0-92.2) fl MCH 31.7 (25.7-32.2) pg MCHC 33.2 (32.2-35.5) g/dl RDW Std Deviation 44.6 H (35.1-43.9) fL Plt Count 124 L (163-337) K/mm3 MPV 10.8 (9.4-12.3) fl Neut % (Auto) 71.1 H (34.0-67.9) % Lymph % (Auto) 14.5 L (21.8-53.1) % Yates % (Auto) 12.7 H (5.3-12.2) % Eos % (Auto) 1.0 (0.8-7.0) Baso % (Auto) 0.4 (0.1-1.2) % Neut # (Auto) 6.93 H (1.78-5.38) K/mm3 Lymph # (Auto) 1.41 (1.32-3.57) K/mm3 Yates # (Auto) 1.24 H (0.30-0.82) K/mm3 Eos # (Auto) 0.10 (0.04-0.54) K/mm3 Baso # (Auto) 0.04 (0.01-0.08) K/mm3 PT 17.7 H (9.7-12.0) SECONDS INR 1.67 Sodium 134 L (136-145) mEq/L Potassium 3.7 (3.5-5.1) mEq/L Chloride 103 (98-107) mEq/L Carbon Dioxide 25 (21-32) mEq/L Anion Gap 9.7 (5-15) BUN 16 (7-18) mg/dL Creatinine 1.2 (0.7-1.3) mg/dL Est Cr Clr Drug Dosing 49.94 mL/min Estimated GFR (MDRD) 57 (>60) mL/min BUN/Creatinine Ratio 13.3 L (14-18) Glucose 100 (83-115) mg/dL Calcium 8.5 (8.5-10.1) mg/dL Magnesium 1.8 (1.8-2.4) mg/dl Total Bilirubin 0.5 (0.2-1.0) mg/dL AST 33 (15-37) U/L ALT 31 (16-63) U/L Alkaline Phosphatase 61 (46-116) U/L Total Protein 5.6 L (6.4-8.2) g/dl Albumin 2.1 L (3.4-5.0) g/dl Globulin 3.5 gm/dL Albumin/Globulin Ratio 0.6 L (1-2) Fidencio Results Last 24 Hours: Microbiology 01/26/19 11:52 Aerobic Blood Culture - Preliminary Blood - Venous NO GROWTH AFTER 1 DAY Anaerobic Blood Culture - Preliminary NO GROWTH AFTER 1 DAY 01/26/19 11:52 Aerobic Blood Culture - Preliminary Blood - Venous - Lab Draw NO GROWTH AFTER 1 DAY Anaerobic Blood Culture - Preliminary NO GROWTH AFTER 1 DAY 01/24/19 19:33 Aerobic Blood Culture - Final Blood - Venous - Lab Draw Escherichia Coli Anaerobic Blood Culture - Preliminary Escherichia Coli 01/24/19 18:39 Aerobic Blood Culture - Final Blood - Venous Escherichia Coli Anaerobic Blood Culture - Preliminary Escherichia Coli 01/24/19 19:45 Urine Culture - Final Urine, Clean Catch Escherichia Coli Med Orders - Current: Current Medications Acetaminophen (Tylenol) 650 mg PO Q4H PRN PRN Reason: Pain (Mild 1-3)/fever Last Admin: 01/25/19 20:52 Dose: 650 mg Cyanocobalamin (Vitamin B12) 1,000 mcg PO DAILY [facility] Last Admin: 01/27/19 08:49 Dose: 1,000 mcg Diltiazem HCl (Cardizem Cd) 180 mg PO DAILY [facility] Last Admin: 01/27/19 08:49 Dose: 180 mg Furosemide (Lasix) 20 mg PO DAILY [facility] Last Admin: 01/27/19 08:49 Dose: 20 mg Ceftriaxone Sodium 1 gm/ (Sodium Chloride) 100 mls @ 200 mls/hr IV Q24H [facility] Stop: 01/28/19 16:29 Metoprolol Tartrate (Lopressor) 25 mg PO Q12H [facility] Last Admin: 01/27/19 12:19 Dose: 25 mg Ondansetron HCl (Zofran) 4 mg IV Q4H PRN PRN Reason: Nausea/Vomiting Ondansetron HCl (Zofran Odt) 4 mg PO Q4H PRN PRN Reason: nausea, able to take PO Pantoprazole Sodium (Protonix) 40 mg PO BEDTIME [facility] Last Admin: 01/26/19 22:24 Dose: 40 mg Senna/Docusate Sodium (Senna Plus) 1 tab PO BID PRN PRN Reason: Constipation Simvastatin (Zocor) 10 mg PO DAILY [facility] Last Admin: 01/27/19 08:49 Dose: 10 mg Warfarin Sodium (Pharmacy To Dose - Warfarin) 1 dose .XX ASDIRECTED PRN PRN Reason: RX TO DOSE WARFARIN Warfarin Sodium (Coumadin) 5 mg PO QPM [facility] Stop: 01/27/19 18:01 Discontinued Medications Acetaminophen (Tylenol) 650 mg PO ONETIME ONE Stop: 01/24/19 17:55 Last Admin: 01/24/19 19:06 Dose: 650 mg Calcium Carbonate (Calcium Carbonate/Vitamin D 600 Mg-200 Unit) 1 tab PO DAILY [facility] Last Admin: 01/25/19 18:13 Dose: Not Given Furosemide (Lasix) 40 mg IVPUSH NOW ONE Stop: 01/24/19 20:59 Last Admin: 01/24/19 21:16 Dose: 40 mg Dextrose/Sodium Chloride (Dextrose 5%-Normal Saline) 1,000 mls @ 150 mls/hr IV ASDIRECTED [facility] Last Admin: 01/24/19 19:09 Dose: 150 mls/hr Levofloxacin/Dextrose 750 mg/ (Premix) 150 mls @ 100 mls/hr IV ONETIME ONE Stop: 01/24/19 19:30 Last Admin: 01/24/19 19:34 Dose: 100 mls/hr Ceftriaxone Sodium 1 gm/ (Sodium Chloride) 100 mls @ 200 mls/hr IV Q24H STA Stop: 01/24/19 22:43 Last Admin: 01/24/19 23:18 Dose: 200 mls/hr Lactated Ringer's (Ringers, Lactated) 1,000 mls @ 125 mls/hr IV ASDIRECTED [facility] Last Admin: 01/26/19 01:04 Dose: 125 mls/hr Ceftriaxone Sodium 1 gm/ (Sodium Chloride) 100 mls @ 200 mls/hr IV BEDTIME [facility] Stop: 01/28/19 21:29 Last Admin: 01/26/19 22:23 Dose: 200 mls/hr Magnesium Sulfate 4 gm/ Premix 50 mls @ 12.5 mls/hr IV ONETIME ONE Stop: 01/25/19 12:48 Last Admin: 01/25/19 09:05 Dose: 12.5 mls/hr Magnesium Sulfate 4 gm/ Premix 50 mls @ 12.5 mls/hr IV ONETIME ONE Stop: 01/26/19 15:03 Last Admin: 01/26/19 11:27 Dose: 12.5 mls/hr Metoprolol Tartrate (Lopressor) 50 mg PO BID [facility] Last Admin: 01/25/19 18:13 Dose: Not Given Ondansetron HCl (Zofran) 4 mg IVPUSH ONETIME ONE Stop: 01/24/19 17:56 Last Admin: 01/24/19 19:03 Dose: 4 mg Warfarin Sodium (Coumadin) 3 mg PO DAILY [facility] Warfarin Sodium (Coumadin) 3 mg PO ONETIME ONE Stop: 01/24/19 23:46 Last Admin: 01/25/19 00:36 Dose: 3 mg Warfarin Sodium (Coumadin) 3 mg PO QPM MONIKA Stop: 01/25/19 18:01 Last Admin: 01/25/19 18:12 Dose: 3 mg Warfarin Sodium (Coumadin) 4 mg PO QPM [facility] Stop: 01/26/19 18:01 Last Admin: 01/26/19 16:59 Dose: 4 mg - Exam Quality Assessment: No: Supplemental Oxygen General: Alert, Oriented HEENT: Pupils Equal, Pupils Reactive, EOMI, Mucous Membr. Moist/[place] Neck: Supple Lungs: Clear to Auscultation, Normal Respiratory Effort Cardiovascular: Regular Rate, Irregular Rhythm GI/Abdominal Exam: Normal Bowel Sounds, Soft, Non-Tender, No Organomegaly, No Distention, No Abnormal Bruit, No Mass, Pelvis Stable Extremities: Non-Tender, Pedal Edema (2+) Skin: Warm, Dry Psy/Mental Status: Alert - Problem List Review Problem List Initiated/Reviewed/Updated: Yes - My Orders Last 24 Hours: My Active Orders 01/27/19 13:56 Ready for Discharge [RC] PER UNIT ROUTINE - Plan Plan:: UTI PLAN - discharge on Keflex for total of 7 days antibiotics. - He will get today's dose of Rocephin 5 hours early to cover him overnight waiting for the second blood cultures come back - urine culture positive for Escherichia coli. Sensitive. Acute hypoxemia PLAN - resolved Atrial fibrillation on warfarin PLAN - increase warfarin to 5 mg secondary to dropping INR wall in the hospital. - INR on Friday, February 01, 2019 Hyponatremia and Hypomagnesemia PLAN - Resolved
[2019-01-27] MEDS ORDERED: Warfarin 5 MG Tab PO ONE (15:30)
[2019-01-27] MEDS ORDERED: cefTRIAXone 1 GM in Sodium Chloride 0.9% 100 ML IV SCH (16:00)
== END 2019-01-27 17:30 | disposition home or self-care (01) | DRG 689 ==
LOC: JD.ED 17:07 → JD.MS 21:21
PROVIDERS: ADMIT Internal Medicine; ATTEND Internal Medicine
DX: R50.9 Fever, unspecified (principal); N39.0 Urinary tract infection, site not specified; I50.33 Acute on chronic diastolic (congestive) heart failure; R09.02 Hypoxemia; R06.02 Shortness of breath; R53.1 Weakness; R42 Dizziness and giddiness; R05 Cough; I48.20 Chronic atrial fibrillation, unspecified; E87.1 Hypo-osmolality and hyponatremia; B96.20 Unspecified Escherichia coli [E. coli] as the cause of diseases classified elsewhere; J44.9 Chronic obstructive pulmonary disease, unspecified; Z66 Do not resuscitate; I48.91 Unspecified atrial fibrillation; E83.42 Hypomagnesemia; K21.9 Gastro-esophageal reflux disease without esophagitis; E78.00 Pure hypercholesterolemia, unspecified; Z72.0 Tobacco use; G47.30 Sleep apnea, unspecified; J43.9 Emphysema, unspecified; N40.0 Benign prostatic hyperplasia without lower urinary tract symptoms; I11.0 Hypertensive heart disease with heart failure; M19.90 Unspecified osteoarthritis, unspecified site; F32.9 Major depressive disorder, single episode, unspecified; F17.200 Nicotine dependence, unspecified, uncomplicated; I08.1 Rheumatic disorders of both mitral and tricuspid valves; Z79.01 Long term (current) use of anticoagulants; Z79.899 Other long term (current) drug therapy
CPT/HCPCS: 36415; 36600; 71045; 80053; 81001; 82803; 83605; 83735; 83880; 84484; 85007; 85027; 85610; 85652; 86140; 87040 ×2; 87086; 87088; 87186; 93005; 96365; 96375; 99285; A9270; G0103; J1940; J1956; J2405; J7042; 51798; 80048; 84100; 85025; 87077; 93010; 93306; 94660; 94760; 94761; 97110-GO; 97110-GP; 97116-GP; 97162-GP; 97165-GO; 97535-GO; J0696; J3475; J7030; J7120

== ENCOUNTER 2021-06-10 09:53 | Inpatient (IN) | payer MEDICARE, OTHER ==
[2021-06-10] MEDS ORDERED: Sodium Chloride 0.9% 10 ML Syringe FLUSH PRN (10:40)
[2021-06-10] MEDS ORDERED: Meclizine 12.5 MG Tab PO ONE (10:41)
[2021-06-10] MEDS ORDERED: Sodium Chloride 0.9% 1,000 ML IV SCH (10:45)
[2021-06-10] MEDS ORDERED: LORazepam 2 MG/ML SDV IVPUSH ONE (13:10)
[2021-06-10] MEDS ORDERED: Metoclopramide 10 MG/2 ML SDV IVPUSH ONE (13:10)
[2021-06-10] MEDS ORDERED: REMDESIVIR 200 MG in Sodium Chloride 0.9% 250 ML IV ONE (15:55)
[2021-06-10] MEDS ORDERED: Albuterol/Ipratropium 3.0-0.5 MG/3 ML Neb Soln NEB PRN (15:55)
[2021-06-10] MEDS ORDERED: Albuterol 0.083% 2.5 MG/3 ML Neb Soln NEB PRN (15:55)
[2021-06-10] MEDS ORDERED: Acetaminophen 325 MG Tab PO PRN (15:55)
[2021-06-10] MEDS ORDERED: LORazepam 2 MG/ML SDV IVPUSH PRN (16:39)
[2021-06-10] MEDS ORDERED: Sodium Chloride 0.9% 250 ML ONE (17:41)
[2021-06-10] MEDS ORDERED: Warfarin 3 MG Tab PO SCH (18:00)
[2021-06-11] MEDS ORDERED: Furosemide 20 MG Tab PO PRN (09:20)
[2021-06-11] MEDS: Cyanocobalamin (Vitamin B12) 1,000 MCG Tab PO SCH (10:09)
[2021-06-11] MEDS: Metoprolol Tartrate 50 MG Tab PO SCH ×3 (10:11→21:30)
[2021-06-11] MEDS: Pantoprazole 40 MG Tab.CR PO SCH (10:11)
[2021-06-11] MEDS: Simvastatin 20 MG Tab PO SCH (10:11)
[2021-06-11] MEDS: Potassium Chloride 10 MEQ Tab.ER PO SCH (10:11)
[2021-06-11] MEDS: Tamsulosin 0.4 MG Cap.ER PO SCH (10:11)
[2021-06-11] MEDS: Cholecalciferol (Vitamin D3) 5,000 UNIT Tab PO SCH (10:11)
[2021-06-11] MEDS: REMDESIVIR 100 MG in Sodium Chloride 0.9% 100 ML IV SCH (16:02)
[2021-06-11] MEDS ORDERED: Warfarin 3 MG Tab PO SCH (18:00)
[2021-06-12] MEDS: Tamsulosin 0.4 MG Cap.ER PO SCH (08:54)
[2021-06-12] MEDS: Pantoprazole 40 MG Tab.CR PO SCH (08:54)
[2021-06-12] MEDS: Cyanocobalamin (Vitamin B12) 1,000 MCG Tab PO SCH (08:54)
[2021-06-12] MEDS: Potassium Chloride 10 MEQ Tab.ER PO SCH (08:54)
[2021-06-12] MEDS: Simvastatin 20 MG Tab PO SCH (08:55)
[2021-06-12] MEDS: Metoprolol Tartrate 50 MG Tab PO SCH ×2 (08:55→20:43)
[2021-06-12] MEDS: Cholecalciferol (Vitamin D3) 5,000 UNIT Tab PO SCH (08:56)
[2021-06-12] MEDS: REMDESIVIR 100 MG in Sodium Chloride 0.9% 100 ML IV SCH (15:42)
[2021-06-12] MEDS ORDERED: Warfarin 3 MG Tab PO SCH (18:00)
[2021-06-13] MEDS: Pantoprazole 40 MG Tab.CR PO SCH (08:15)
[2021-06-13] MEDS: Tamsulosin 0.4 MG Cap.ER PO SCH (08:15)
[2021-06-13] MEDS: Simvastatin 20 MG Tab PO SCH (08:15)
[2021-06-13] MEDS: Cyanocobalamin (Vitamin B12) 1,000 MCG Tab PO SCH (08:15)
[2021-06-13] MEDS: Potassium Chloride 10 MEQ Tab.ER PO SCH (08:15)
[2021-06-13] MEDS: Cholecalciferol (Vitamin D3) 5,000 UNIT Tab PO SCH (08:15)
[2021-06-13] MEDS: Metoprolol Tartrate 50 MG Tab PO SCH ×2 (08:16→08:35)
[2021-06-13 12:10] VITALS: BP 121/67; PULSE 74
[2021-06-13] MEDS ORDERED: Warfarin 3 MG Tab PO SCH (18:00)
== END 2021-06-13 15:40 | disposition home or self-care (01) | DRG 178 ==
LOC: JD.ED 09:53 → JD.MS 14:20
PROVIDERS: ADMIT Family Medicine; ATTEND Family Medicine
PROC: 8E0ZXY6 Isolation (ICD-10-PCS; principal; 2021-06-10)
PROC: XW033E5 Introduction of Remdesivir Anti-infective into Peripheral Vein, Percutaneous Approach, New Technology Group 5 (ICD-10-PCS; 2021-06-10)
DX: R42 Dizziness and giddiness (principal); R26.81 Unsteadiness on feet; I48.91 Unspecified atrial fibrillation; U07.1 COVID-19; H54.7 Unspecified visual loss; E78.00 Pure hypercholesterolemia, unspecified; I10 Essential (primary) hypertension; I08.0 Rheumatic disorders of both mitral and aortic valves; I48.20 Chronic atrial fibrillation, unspecified; G47.30 Sleep apnea, unspecified; I13.0 Hypertensive heart and chronic kidney disease with heart failure and stage 1 through stage 4 chronic kidney disease, or unspecified chronic kidney disease; R13.10 Dysphagia, unspecified; N18.30 Chronic kidney disease, stage 3 unspecified; R79.89 Other specified abnormal findings of blood chemistry; M19.90 Unspecified osteoarthritis, unspecified site; E78.5 Hyperlipidemia, unspecified; J44.9 Chronic obstructive pulmonary disease, unspecified; Z96.643 Presence of artificial hip joint, bilateral; Z96.653 Presence of artificial knee joint, bilateral; F17.210 Nicotine dependence, cigarettes, uncomplicated; I50.9 Heart failure, unspecified; Z66 Do not resuscitate; G47.33 Obstructive sleep apnea (adult) (pediatric); K21.9 Gastro-esophageal reflux disease without esophagitis; F32.A Depression, unspecified; N40.1 Benign prostatic hyperplasia with lower urinary tract symptoms; R35.1 Nocturia; Z90.89 Acquired absence of other organs; Z98.890 Other specified postprocedural states; Z98.52 Vasectomy status; Z79.01 Long term (current) use of anticoagulants; Z87.19 Personal history of other diseases of the digestive system; Z79.899 Other long term (current) drug therapy; Z97.3 Presence of spectacles and contact lenses; Z97.2 Presence of dental prosthetic device (complete) (partial); Z97.4 Presence of external hearing-aid
CPT/HCPCS: 36415; 70450; 71045; 80053; 83880; 84484; 85007; 85027; 85610; 85730; 93005 ×2; 96374; 96375; 99285; A9270; J2060; J2765; J7030; U0002; 83735; 84100; 85025; 85379; 86140; 93010; 94762; 97116-GP; 97162-GP; 97530-GP; J7050